=== PATIENT | female | born 1975 | race Caucasian/White ===

== ENCOUNTER → 2020-12-21 12:47 | Outpatient (CLI) | payer BC, SELFPAY ==
[2020-12-21 13:37] LABS: Adenovirus,PCR Not Detected (NotDetected); Bordetella Pertussis Not Detected (NotDetected); Chlamydophila Pneumoniae, PCR Not Detected (NotDetected); Coronavirus 19, PCR Not Detected (NotDetected); Coronavirus 229E Not Detected (NotDetected); Coronavirus NL63 Not Detected (NotDetected); Coronavirus OC43 Not Detected (NotDetected); Coronovirus HKU1,PCR Not Detected (NotDetected); Human Metapneumovirus Not Detected (NotDetected); Influenza A, PCR Not Detected (NotDetected); Influenza AH1, 2009 Not Detected (NotDetected); Influenza AH1, PCR Not Detected (NotDetected); Influenza AH3,PCR Not Detected (NotDetected); Influenza B, PCR Not Detected (NotDetected); Mycoplasma Pneumoniae, PCR Not Detected (NotDetected); Parainfluenza 1, PCR Not Detected (NotDetected); Parainfluenza 2, PCR Not Detected (NotDetected); Parainfluenza 3, PCR Not Detected (NotDetected); Parainfluenza 4, PCR Not Detected (NotDetected); Respiratory Syncytial Virus Not Detected (NotDetected); Rhinovirus/Enterovirus Not Detected (NotDetected)
== END ==
PROVIDERS: PCP Nurse Practitioner; Visit Provider Nurse Practitioner
DX: Z20.822 Contact with and (suspected) exposure to COVID-19 (principal)
CPT/HCPCS: 87486; 87581; 87633; 87798; U0003

== ENCOUNTER → 2022-07-15 23:23 | Outpatient (CLI) | payer BC, SELFPAY ==
[2022-07-15 19:16] LABS: Alanine Aminotransferase 20 U/L (12-78); Albumin Level 4.2 g/dl (3.5-5.0); Albumin/Globulin Ratio 1.6 (1.1-1.8); Alkaline Phosphatase 50 U/L (38-126); Anion Gap 6.1 mEq/L (5-15); Aspartate Amino Transferase 22 U/L (14-36); Bilirubin,Total 0.5 mg/dl (0.2-1.3); Blood Urea Nitrogen 11 mg/dl (7-17); Carbon Dioxide 26 mmol/L (22.0-30.0); Chloride 109 mmol/L (98-107); Chol/HDL Ratio 3.6 (1-3.5); Cholesterol 130 mg/dl (140-200); Estimated Glomerular Filt Rate 106 ml/min (>60); GFR (African American) 129 ML/MIN (>60); Globulin 2.6 g/dL (1.3-3.2); Glucose 95 mg/dl (74-100); HDL Cholesterol 36 mg/dl (40-60); Potassium 4.1 mmoL/L (3.5-5.1); Sodium 137 mmol/L (136-145); Total Protein,Serum 6.8 g/dl (6.3-8.2); Triglycerides 74 mg/dl (30-150); VLDL Cholesterol 15 mg/dL (0-40)
[2022-07-15 19:28] LABS: Creatinine,Urine Random 17 mg/dL (Not Estab.); Microalbumin/Creatinine Ratio 35.8
[2022-07-15 19:29] LABS: Direct LDL Cholesterol 83.47 mg/dL (100-129)
[2022-07-15 19:38] LABS: Basophils # 0.1 K/mm3 (0-0.2); Basophils % 0.9 % (0.1-2.0); Eosinophils # 0.1 K/mm3 (0.0-0.4); Eosinophils % 1.1 % (0.1-12.0); Hematocrit 45.2 % (37.0-47.0); Hemoglobin 15.1 g/dL (12.2-16.2); Lymphocytes # 1.5 K/mm3 (0.7-4.5); Lymphocytes % 23.9 % (10-50); Mean Corpuscular HGB Conc 33.4 g/dL (31.8-35.4); Mean Corpuscular Hemoglobin 32.2 pg (27.0-31.2); Mean Corpuscular Volume 96.5 fl (81-99); Mean Platelet Volume 9.9 fl (7.4-10.4); Monocytes # 0.6 K/mm3 (0.1-1.0); Neutrophils % 65.1 % (37.0-80.0); Platelet Count 281 K/mm3 (142-424); Red Blood Count 4.68 M/mm3 (4.20-5.40); Red Cell Distribution Width 12.9 % (11.5-17.5); White Blood Count 6.2 K/mm3 (4.8-10.8)
[2022-07-15 19:48] LABS: Thyroid Stimulating Hormone 0.55 uIU/mL (0.465-4.68)
[2022-07-15 20:12] LABS: Hemoglobin A1C 5.2 % (4.0-6.0)
[2022-07-17 09:22] LABS: Triiodothyronine (T3) Free 4.1 pg/mL (2.0-4.4)
== END ==
PROVIDERS: PCP Nurse Practitioner; Visit Provider Nurse Practitioner
DX: E05.90 Thyrotoxicosis, unspecified without thyrotoxic crisis or storm (principal); F41.8 Other specified anxiety disorders; I10 Essential (primary) hypertension; J30.9 Allergic rhinitis, unspecified
CPT/HCPCS: 80053; 80061; 82043; 82570; 83036; 84439; 84443; 84481; 85025

== ENCOUNTER → 2022-07-16 23:36 | Outpatient (CLI) | payer BC, SELFPAY | PROVIDERS: PCP Family Medicine; Visit Provider Family Medicine | DX: L72.9 Follicular cyst of the skin and subcutaneous tissue, unspecified (principal); B95.7 Other staphylococcus as the cause of diseases classified elsewhere | CPT/HCPCS: 87070; 87077; 87186; 87205 ==

== ENCOUNTER → 2022-08-08 23:14 | Outpatient (CLI) | payer BC, SELFPAY ==
[2022-08-08 17:57] LABS: Chloride 104 mmol/L (98-107)
[2022-08-08 17:58] LABS: Potassium 4.3 mmoL/L (3.5-5.1); Sodium 138 mmol/L (136-145)
[2022-08-08 18:00] LABS: Alanine Aminotransferase 24 U/L (12-78); Alkaline Phosphatase 49 U/L (38-126); Aspartate Amino Transferase 25 U/L (14-36); Bilirubin,Total 0.5 mg/dl (0.2-1.3); Blood Urea Nitrogen 12 mg/dl (7-17); Estimated Glomerular Filt Rate 89 ml/min (>60); GFR (African American) 108 ML/MIN (>60)
[2022-08-08 18:01] LABS: Albumin Level 4.1 g/dl (3.5-5.0); Albumin/Globulin Ratio 1.7 (1.1-1.8); Anion Gap 10.3 mEq/L (5-15); Calcium 8.9 mg/dl (8.4-10.2); Carbon Dioxide 28 mmol/L (22.0-30.0); Globulin 2.4 g/dL (1.3-3.2); Glucose 92 mg/dl (74-100); Total Protein,Serum 6.5 g/dl (6.3-8.2)
[2022-08-08 18:12] LABS: Basophils # 0.1 K/mm3 (0-0.2); Basophils % 1.4 % (0.1-2.0); Eosinophils # 0.1 K/mm3 (0.0-0.4); Hematocrit 45.3 % (37.0-47.0); Lymphocytes # 1.3 K/mm3 (0.7-4.5); Lymphocytes % 26.4 % (10-50); Mean Corpuscular HGB Conc 33.1 g/dL (31.8-35.4); Mean Corpuscular Hemoglobin 31.8 pg (27.0-31.2); Mean Platelet Volume 9.9 fl (7.4-10.4); Monocytes # 0.5 K/mm3 (0.1-1.0); Monocytes % 10.8 % (1.7-9.3); Neutrophils % 59.4 % (37.0-80.0); Platelet Count 270 K/mm3 (142-424); Red Blood Count 4.71 M/mm3 (4.20-5.40); Red Cell Distribution Width 12.9 % (11.5-17.5)
== END ==
PROVIDERS: PCP Nurse Practitioner; Visit Provider Nurse Practitioner
DX: R10.9 Unspecified abdominal pain (principal)
CPT/HCPCS: 80053; 85025

== ENCOUNTER → 2023-01-10 00:04 | Outpatient (CLI) | payer BC, SELFPAY ==
[2023-01-09 19:11] LABS: Basophils % 0.3 % (0.1-2.0); Eosinophils # 0.1 K/mm3 (0.0-0.4); Eosinophils % 1.5 % (0.1-12.0); Hematocrit 44.3 % (37.0-47.0); Hemoglobin 14.5 g/dL (12.2-16.2); Lymphocytes # 1.7 K/mm3 (0.7-4.5); Mean Corpuscular HGB Conc 32.7 g/dL (31.8-35.4); Mean Corpuscular Hemoglobin 31.2 pg (27.0-31.2); Mean Corpuscular Volume 95.4 fl (81-99); Monocytes # 0.6 K/mm3 (0.1-1.0); Neutrophils % 55.1 % (37.0-80.0); Platelet Count 278 K/mm3 (142-424); Red Blood Count 4.64 M/mm3 (4.20-5.40); Red Cell Distribution Width 12.7 % (11.5-17.5); White Blood Count 5.4 K/mm3 (4.8-10.8)
[2023-01-09 19:36] LABS: Alanine Aminotransferase 36 U/L (12-78); Albumin/Globulin Ratio 1.6 (1.1-1.8); Alkaline Phosphatase 63 U/L (38-126); Anion Gap 15.5 mEq/L (5-15); Aspartate Amino Transferase 28 U/L (14-36); Bilirubin,Total 0.3 mg/dl (0.2-1.3); Blood Urea Nitrogen 13 mg/dl (7-17); Calcium 9.5 mg/dl (8.4-10.2); Carbon Dioxide 25 mmol/L (22.0-30.0); Chloride 103 mmol/L (98-107); Estimated Glomerular Filt Rate 106 ml/min (>60); GFR (African American) 129 ML/MIN (>60); Globulin 2.5 g/dL (1.3-3.2); Glucose 77 mg/dl (74-100); Potassium 4.5 mmoL/L (3.5-5.1); Sodium 139 mmol/L (136-145); Total Protein,Serum 6.5 g/dl (6.3-8.2)
== END ==
PROVIDERS: PCP Nurse Practitioner; Visit Provider Nurse Practitioner
DX: I10 Essential (primary) hypertension (principal); R60.0 Localized edema
CPT/HCPCS: 80053; 85025

== ENCOUNTER → 2023-04-29 07:28 | Outpatient (CLI) | payer BC, SELFPAY ==
[2023-04-29 18:44] LABS: Coronavirus 19, PCR Not Detected (NotDetected); Influenza A, PCR Not Detected (NotDetected); Influenza B, PCR Not Detected (NotDetected)
[2023-04-29 19:26] LABS: Basophils % 0.5 % (0.1-2.0); Eosinophils # 0.1 K/mm3 (0.0-0.4); Hematocrit 44.5 % (37.0-47.0); Hemoglobin 15.4 g/dL (12.2-16.2); Lymphocytes # 1.6 K/mm3 (0.7-4.5); Lymphocytes % 23.8 % (10-50); Mean Corpuscular HGB Conc 34.6 g/dL (31.8-35.4); Mean Corpuscular Hemoglobin 31.7 pg (27.0-31.2); Mean Corpuscular Volume 91.6 fl (81-99); Mean Platelet Volume 10.3 fl (7.4-10.4); Monocytes # 0.5 K/mm3 (0.1-1.0); Monocytes % 7.2 % (1.7-9.3); Neutrophils # 4.5 K/mm3 (1.8-7.8); Neutrophils % 67.4 % (37.0-80.0); Platelet Count 243 K/mm3 (142-424); Red Blood Count 4.85 M/mm3 (4.20-5.40); Red Cell Distribution Width 13.1 % (11.5-17.5); White Blood Count 6.6 K/mm3 (4.8-10.8)
[2023-04-29 20:09] LABS: Alanine Aminotransferase 28 U/L (12-78); Albumin Level 4.3 g/dl (3.5-5.0); Albumin/Globulin Ratio 1.7 (1.1-1.8); Alkaline Phosphatase 63 U/L (38-126); Anion Gap 10.3 mEq/L (5-15); Aspartate Amino Transferase 23 U/L (14-36); Bilirubin,Total 0.4 mg/dl (0.2-1.3); Blood Urea Nitrogen 10 mg/dl (7-17); Calcium 9.1 mg/dl (8.4-10.2); Carbon Dioxide 27 mmol/L (22.0-30.0); Chloride 103 mmol/L (98-107); Estimated Glomerular Filt Rate 106 ml/min (>60); GFR (African American) 128 ML/MIN (>60); Globulin 2.6 g/dL (1.3-3.2); Glucose 95 mg/dl (74-100); Potassium 4.3 mmoL/L (3.5-5.1); Sodium 136 mmol/L (136-145); Total Protein,Serum 6.9 g/dl (6.3-8.2)
== END ==
PROVIDERS: PCP Nurse Practitioner; Visit Provider Nurse Practitioner
DX: R42 Dizziness and giddiness (principal)
CPT/HCPCS: 80053; 85025; 87636

== ENCOUNTER 2023-09-24 10:20 | Outpatient (CLI) | payer BC, SELFPAY ==
[2023-09-24 17:56] LABS: MANUAL DIFFERENTIAL MANUAL DIFFERENTIAL (MANUAL DIFF)
[2023-09-24 18:27] LABS: Basophils # 0.1 K/mm3 (0-0.2); Basophils % 1.3 % (0.1-2.0); Eosinophils # 0.1 K/mm3 (0.0-0.4); Hematocrit 45.6 % (37.0-47.0); Hemoglobin 14.9 g/dL (12.2-16.2); Lymphocytes # 1.7 K/mm3 (0.7-4.5); Lymphocytes % 36.5 % (10-50); Mean Corpuscular HGB Conc 32.7 g/dL (31.8-35.4); Mean Corpuscular Hemoglobin 32.5 pg (27.0-31.2); Mean Corpuscular Volume 99.4 fl (81-99); Mean Platelet Volume 9.8 fl (7.4-10.4); Monocytes # 0.3 K/mm3 (0.1-1.0); Monocytes % 7.4 % (1.7-9.3); Neutrophils # 2.4 K/mm3 (1.8-7.8); Neutrophils % 52.8 % (37.0-80.0); Platelet Count 260 K/mm3 (142-424); Red Blood Count 4.59 M/mm3 (4.20-5.40); Red Cell Distribution Width 13.5 % (11.5-17.5); White Blood Count 4.5 K/mm3 (4.8-10.8)
[2023-09-24 19:30] LABS: Alanine Aminotransferase 23 U/L (12-78); Albumin Level 4.3 g/dl (3.5-5.0); Albumin/Globulin Ratio 1.8 (1.1-1.8); Alkaline Phosphatase 52 U/L (38-126); Anion Gap 10.3 mEq/L (5-15); Aspartate Amino Transferase 26 U/L (14-36); Bilirubin,Total 0.6 mg/dl (0.2-1.3); Blood Urea Nitrogen 15 mg/dl (7-17); Calcium 9.7 mg/dl (8.4-10.2); Carbon Dioxide 29 mmol/L (22.0-30.0); Chloride 104 mmol/L (98-107); Chol/HDL Ratio 3.4 (1-3.5); Cholesterol 148 mg/dl (140-200); Estimated Glomerular Filt Rate 76 ml/min (>60); GFR (African American) 92 ML/MIN (>60); Globulin 2.4 g/dL (1.3-3.2); Glucose 90 mg/dl (74-100); HDL Cholesterol 43 mg/dl (40-60); Potassium 4.3 mmoL/L (3.5-5.1); Sodium 139 mmol/L (136-145); Total Protein,Serum 6.7 g/dl (6.3-8.2); Triglycerides 52 mg/dl (30-150); VLDL Cholesterol 10 mg/dL (0-40)
[2023-09-24 19:35] LABS: Hemoglobin A1C 5.4 % (4.0-6.0)
[2023-09-24 19:41] LABS: Direct LDL Cholesterol 97.56 mg/dL (100-129)
[2023-09-24 20:19] LABS: Vitamin B12 345 pg/mL (239-931)
[2023-09-24 20:32] LABS: Eosinophils % 3 % (0-3); Lymphocytes % 38 % (10-50); Monocytes % 4 % (2-9); Neutrophils % 55 % (42-76); Platelet Estimate Normal; RBC Morphology Normal; Total Cells Counted 100
[2023-09-24 22:18] LABS: Creatinine,Urine Random 36 mg/dL (Not Estab.); Microalbumin < 6.000 mg/L (0-16.7)
== END 2023-09-24 23:59 | disposition home or self-care (01) ==
LOC: LAB.DROPOF 09-26 10:20
PROVIDERS: Nurse Practitioner Family; PCP Nurse Practitioner; Visit Provider Nurse Practitioner
DX: R42 Dizziness and giddiness (principal); I10 Essential (primary) hypertension; E05.00 Thyrotoxicosis with diffuse goiter without thyrotoxic crisis or storm; Z79.899 Other long term (current) drug therapy
CPT/HCPCS: 80053; 80061; 82043; 82306; 82570; 82607; 83036; 84443; 85007; 85014; 85018; 85048; 85049

== ENCOUNTER 2024-05-17 09:18 | Outpatient (CLI) | payer BC, SELFPAY ==
[2024-05-17 18:40] LABS: Basophils # 0.1 K/mm3 (0-0.2); Basophils % 0.6 % (0.1-2.0); Eosinophils # 0.1 K/mm3 (0.0-0.4); Eosinophils % 0.8 % (0.1-12.0); Hematocrit 42.8 % (37.0-47.0); Hemoglobin 14.9 g/dL (12.2-16.2); Lymphocytes # 1.6 K/mm3 (0.7-4.5); Lymphocytes % 19.2 % (10-50); Mean Corpuscular HGB Conc 34.8 g/dL (31.8-35.4); Mean Corpuscular Volume 94.9 fl (81-99); Mean Platelet Volume 11.1 fl (7.4-10.4); Monocytes # 0.8 K/mm3 (0.1-1.0); Monocytes % 9.8 % (1.7-9.3); Neutrophils # 5.8 K/mm3 (1.8-7.8); Neutrophils % 69.4 % (37.0-80.0); Platelet Count 296 K/mm3 (142-424); Red Blood Count 4.51 M/mm3 (4.20-5.40); Red Cell Distribution Width 12.1 % (11.5-17.5); White Blood Count 8.4 K/mm3 (4.8-10.8)
[2024-05-17 19:01] LABS: Alanine Aminotransferase 23 U/L (12-78); Albumin Level 4.1 g/dl (3.5-5.0); Albumin/Globulin Ratio 1.9 (1.1-1.8); Alkaline Phosphatase 45 U/L (38-126); Anion Gap 7.1 mEq/L (5-15); Aspartate Amino Transferase 20 U/L (14-36); Bilirubin,Total 0.5 mg/dl (0.2-1.3); Blood Urea Nitrogen 10 mg/dl (7-17); Calcium 9.3 mg/dl (8.4-10.2); Carbon Dioxide 26 mmol/L (22.0-30.0); Chloride 108 mmol/L (98-107); Estimated Glomerular Filt Rate 88 ml/min (>60); GFR (African American) 107 ML/MIN (>60); Globulin 2.2 g/dL (1.3-3.2); Glucose 84 mg/dl (74-100); Potassium 4.1 mmoL/L (3.5-5.1); Sodium 137 mmol/L (136-145); Total Protein,Serum 6.3 g/dl (6.3-8.2)
[2024-05-17 19:31] LABS: Thyroid Stimulating Hormone 0.28 uIU/mL (0.465-4.68)
[2024-05-17 19:50] LABS: Vitamin B12 311 pg/mL (239-931)
[2024-05-17 21:37] LABS: Free T4 (Free Thyroxine) 2.02 ng/dl (0.78-2.19)
[2024-05-17 22:10] LABS: Hemoglobin A1C 5.1 % (4.0-6.0)
== END 2024-05-17 23:59 | disposition home or self-care (01) ==
LOC: LAB.DROPOF 05-18 09:18
PROVIDERS: PCP Nurse Practitioner; Visit Provider Nurse Practitioner
DX: R53.83 Other fatigue (principal); I10 Essential (primary) hypertension; F41.8 Other specified anxiety disorders; E05.00 Thyrotoxicosis with diffuse goiter without thyrotoxic crisis or storm; Z98.890 Other specified postprocedural states; Z90.89 Acquired absence of other organs; E89.0 Postprocedural hypothyroidism; F17.200 Nicotine dependence, unspecified, uncomplicated
CPT/HCPCS: 80050; 80053; 82306; 82607; 83036; 84439; 84443; 85025

== ENCOUNTER 2024-06-07 14:45 | Outpatient (CLI) | payer BC, SELFPAY ==
[2024-06-07 19:14] LABS: Creatinine,Urine Random 16 mg/dL (Not Estab.)
[2024-06-07 19:15] LABS: Microalbumin < 6.000 mg/L (0-16.7)
[2024-06-09 08:13] LABS: Estradiol 81.2 pg/mL (.); FSH 74.7 mIU/mL (.); LH 59.5 mIU/mL (.)
== END 2024-06-07 23:59 | disposition home or self-care (01) ==
LOC: LAB.DROPOF 06-08 07:59
PROVIDERS: Nurse Practitioner; PCP Family Medicine; Visit Provider Family Medicine
DX: F41.8 Other specified anxiety disorders (principal); I10 Essential (primary) hypertension; E05.00 Thyrotoxicosis with diffuse goiter without thyrotoxic crisis or storm; Z98.890 Other specified postprocedural states; Z90.89 Acquired absence of other organs; E89.0 Postprocedural hypothyroidism; R53.83 Other fatigue; E05.90 Thyrotoxicosis, unspecified without thyrotoxic crisis or storm; Z72.0 Tobacco use
CPT/HCPCS: 82043; 82570; 82670; 83001; 83002

== ENCOUNTER 2024-10-07 09:41 | Outpatient (CLI) | payer BC, SELFPAY ==
[2024-10-07 19:17] LABS: Chol/HDL Ratio 3.1 (1-3.5); Cholesterol 127 mg/dl (140-200); HDL Cholesterol 41 mg/dl (40-60); Triglycerides 68 mg/dl (30-150); VLDL Cholesterol 14 mg/dL (0-40)
[2024-10-07 19:28] LABS: Direct LDL Cholesterol 82.45 mg/dL (100-129)
[2024-10-07 19:34] LABS: T4 (Thyroxine) 12.5 ug/dl (5.53-11.0)
[2024-10-07 19:47] LABS: Thyroid Stimulating Hormone 1.61 uIU/mL (0.465-4.68)
[2024-10-07 19:58] LABS: HIV Combo NEGATIVE (Negative)
[2024-10-07 20:04] LABS: Hepatitis C Ab Qual. W/ RFX NEGATIVE (Negative)
== END 2024-10-07 23:59 | disposition home or self-care (01) ==
LOC: LAB.DROPOF 22:06
PROVIDERS: PCP Family Medicine; Visit Provider Family Medicine
DX: I10 Essential (primary) hypertension (principal); R07.9 Chest pain, unspecified; Z11.59 Encounter for screening for other viral diseases
CPT/HCPCS: 80061; 80074; 84436; 84443; 87389

== ENCOUNTER 2025-03-07 11:41 | Outpatient (CLI) | payer BC, SELFPAY ==
--- OUTSIDE RECORDS SUMMARY | 2023-12-20 05:00 | XMS_ITS ---
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 Never 02/23/2021 - Alcohol Screen Did you have a drink containing alcohol in the past year? Never 02/23/2021 - Household: Social Info Question Answer Notes Household Marital status: Tobacco Use: Social Info Question Answer Notes Tobacco Control (Standard) Tobacco use: Current every day 02/23/2021 - Additional Details Category Social Info Options Details Miscellaneous: Exercise: Heavy Amount of Exercise (4 or more times weekly) Travel outside of the [place]: Travel History: Uses seat belts 02/23/2021 - Encounters Encounter Location Date Provider Diagnosis [facility] [address] [place] [address] [address] [place] [address] 12/20/2023 Provider Migration Plan Of Treatment No Information Progress Notes * Gagan DONNELLY:1975 (49 yo F)Acc No.[id number]:12/20/2023 Patient: Anne-Marie BUTCHER :1975 A ge:48 Y S ex:Female Address:[address] [place] [address], [id number] Subjective: * Chief Complaints: * Medical History: *NO SIGNIFICANT GENETIC HISTORY Trichomonal Vulvovaginitis: 2021 Thickened endometrium 7 [place]: Sexually active - No 7 [place]: Self breast exam- yes 7 [place]: Dairy Product Use - Yes * 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 S exual Activity/Contraception: C ontraception: T ubal Ligation. * OB History: P regnancy History (GPA) T otal Pregnancies 4 , F ull Term 3 , P remature?1, A B. Induced 0 , A B. Spontaneous 0 , E ctopics 0 , M ultiple Births 0 , L iving 4 . G P G ravida: 4 , P umesh: 4 . * Surgical History: Tubal ligation * Family History: F amily History Verified.. *No known family medical history. * Social History: T obacco Use: T obacco Control (Standard) T obacco use: C urrent every day 02/23/2021 -. D rugs/Alcohol: D rugs H ave you used drugs other than those for medical reasons in the past 12 months??Never 02/23/2021 -. A lcohol Screen D id you have a drink containing alcohol in the past year? N ever 02/23/2021 -. M iscellaneous: E xercise: Heavy Amount of Exercise (4 or more times weekly). Travel outside of the [place]: Travel History: Uses seat belts 02/23/2021 -. H ousehold: H ousehold M arital status: . * Allergies: M edications: NO KNOWN DRUG ALLERGIES: Unspecified - AllergyyesAllergies Verified. * * Date:
--- OUTSIDE RECORDS SUMMARY | 2025-01-28 08:45 | XMS_ITS | Encounter Summary ---
Author Organization [facility] Address [address] [place] [id number] Phone Care Team Providers Care Circuit Rider Name Role Phone Cynthia Amado APRN Primary Care Provider [phone] Janny Kaufman MD Unavailable [phone] Reason for Visit * Auth/Cert/Inpt Specialty Diagnoses / Procedures Referred By Saul t Referred To Contact Orth[facility] Surgery Diagnoses Right knee pain, unspecified chronicity Right knee pain, unspecified chronicity [M25.561] Procedures TX ARTHROSCOPY KNEE W/MENISCUS RPR MEDIAL/LATERAL TX ARTHROSCOPY KNEE DIAGNOSTIC W/WO SYNOVIAL BX SPX TX ARTHRS KNE SURG W/MENISCECTOMY MED/LAT W/SHVG RIGHT KNEE DIAGNOSTIC ARTHROSCOPY POSSIBLE MEDIAL MENISCUS ROOT REPAIR, POSSIBLE PARTIAL MEDIAL MENISCECTOMY [facility] [address] [place] [address] Phone: tel: fax: [facility] [address] [place] [address] Phone: tel: fax: Referral ID Status Reason Start Date Expiration Date Visits Re quested Visits Authorized [id number] 1 1 Encounter Details Date Type Department Care Team (Late st Contact Info) Description 01/28/2025 8:45 AM EDT - 01/28/2025 11:59 PM EDT Hospital Encounter [facility] [address] [place], [place] [id number] Bismark Henry MD [address] [place] [address] Discharge Disposition: Home or Self Care Social History Tobacco Use Types Packs/Day Years Used Date Smoking Tobacco: Every Day Cigarettes 1 40.8 Started: 1984 Smokeless Tobacco: Never Comments:3/4 pack of cigaret abigail Alcohol Use Standard Drinks/Week Comments Not Currently 0 (1 standard drink = 0.6 oz pur e alcohol) [facility] Utilities Answer Date Recorded In the past 12 months has th e electric, gas, oil, or water company threatened to shut off services in your home? No 05/10/2024 Overall Financial Resource Strain (CARDIA) Answe r Date Recorded How hard is it for you to pa y for the very basics like food, housing, medical care, and heating? Not hard at all 05/10/2024 PHQ-2 Answer Date Recorded PHQ-2 Total Score 0 05/10/2024 [facility] - Occupational Stress Questionnaire Answer Date Recorded Do you feel stress - tense, restless, nervous, or anxious, or unable to sleep at night because your mind is troubled all the time - these days? Not at all 05/10/2024 Exercise Vital Sign Answer Date Recorde d On average, how many days pe r week do you engage in moderate to strenuous exercise (like a brisk walk)? 0 days 05/10/2024 On average, how many minutes do you engage in exercise at this level? 0 min 05/10/2024 Hunger Vital Sign Answer Date Recorded Within the past 12 months, y ou worried that your food would run out before you got the money to buy more. Never true 05/10/20 24 Within the past 12 months, t he food you bought just didn't last and you didn't have money to get more. Never true 05/10/2024 [facility] HRSN [facility] IP Transportation Answer D ate Recorded In the past 12 months, has l ack of reliable transportation kept you from medical appointments, meetings, work or from getting things needed for daily living? No 05/10/2024 Comments No Sex and Gender Information Value Date Recorded Sex Assigned at Not on file Legal Sex Female 2:40 PM EDT Gender Identity Not on file Sexual Orientation Not on file documented as of this encounter Last Filed Vital Signs Vital Sign Reading Time Taken Comments Blood Pressure 142/80 01/28/2025 10:00 AM EDT Pulse 70 01/28/2025 10:00 AM EDT Temperature 36.7 C (98 F) 01/28/2025 10:00 AM EDT Respiratory Rate 15 01/28/2025 10:00 AM EDT Oxygen Saturation 94% 01/28/2025 10:00 AM EDT Inhaled Oxygen Concentration - - Weight 70.8 kg (156 lb) 01/28/2025 7:27 AM EDT Height 170.2 cm (5' 7 ) 01/28/2025 7:27 AM EDT Body Mass Index 24.43 01/28/2025 7:27 AM EDT documented in this encounter Discharge Instructions * Discharge Instructions* Bismark Henry MD - 01/28/2025 8:04 AM EDT Images from the original note were not included. +++++++++++++++++++++++++++++++++++++++++++++++++++++++++++++++++++ [facility] Discharge Instructions - Following Anesthesia We appreciate the opportunity to care for you today! Here are a few reminders as you head home: A responsible adult, 18 years or older must be in attendance until tomorrow morning. Rest quietly today. May resume usual diet as tolerated or as directed by your surgeon. Do not drive or operate any machinery until tomorrow morning or as instructed. Do not make any legal or important decisions for the next 24 hours. Do not drink alcoholic beverages or take sleeping pills for 24 hours unless otherwise directed. If you received a nerve block for post-operative pain control, protect your blocked arm/leg. It maybe numb. Carefully pad your limb to prevent pressure sores and other injuries. Be careful with applying cold/warm to the blocked limb. Numbness will alter the sensation of the limb and could damage your skin if you cannot correctly feel the temperature. If you have questions or concerns regarding your anesthesia experience, please call our office at . Get Well Soon! [facility] +++++++++++++++++++++++++++++++++++++++++++++++++++++++++++++++++++ Home Care Instructions following Orthopaedic Surgery 1. A responsible adult, 18 years of age or older, must be in attendance for 24 hours following discharge. 2. Rest quietly today. 3. Start with liquids first like 7-up or Gatorade. If no nausea after 1 hour, proceed with a light meal. 4. Do not drive or operate heavy machinery. 5. No alcoholic beverages for 24 hours, or while taking pain medicine. 6. Do not make any legal or important decisions for at least the next 24 hours. 7. Check temperature over the next five days and call if greater than 101.0 F. 8. Notify physician if you have a rash, hives, difficulty breathing, severe nausea and vomiting. 9. Contact your family physician for questions concerning home medications. 10. If pain gets worse, call your physician. 11. If physician is unavailable, go to the Emergency Room. Knee Arthroscopy Discharge Instructions 1. Keep operative knee elevated (above the level of the heart). 2. Apply ice pack/ polar care to your knee. 3. Dressing: Keep your dressing on, clean and dry until removed by physical therapy. 4. Physical therapy: Yes, begin in 2-3 days. 5. Crutches/Walker: Use as needed. Weight bearing as tolerated. 6. Take one regular aspirin a day for 30 days. UNLESS 1) You are allergic 2) You take blood thinners (OK to restart) 3) You take aspirin regularly (OK to restart) 7. Call physician's office for post-op visit in 7-10 days. 8. Physician's phone number: [phone] 9. Resume home medications as prescribed by your other doctors. 10. Phenergan for nausea and Colace for constipation are already escribed and waiting for you at your pharmacy. 11. If you are in pain management, or get pain meds from another doctor, check with that doctor BEFORE filling new pain meds 12. If you received oxycodone or tramadol, take 2 extra-strength Tylenol (500mg tablet) three timesa day for a week, and the pain medicine/narcotic as needed. Check your other medicines for acetaminophen, and keep total daily dosage at 3000mg. documented in this encounter Medications at Time of Discharge ALPRAZolam (XANAX) 0.5 mg Oral Tablet Take 0.5 mg by mouth nightly as needed for Anxiety. 5 atorvastatin (LIPITOR) 20 mg Oral Tablet Take 1 Tablet by mouth nightly. 30 Tablet 6 05/10/2024 3:44 PM EST 4 cetirizine (ZYRTEC) 10 mg Oral Tablet Take 10 mg by mouth daily. dilTIAZem 120 mg Oral Capsule, Sust. Release 24 hr Take 1 Capsule by mouth daily. 30 Capsule 11 5 docusate sodium (COLACE) 100 mg Oral Capsule Take one capsule three times a day while on pain meds 90 Capsule 5 fluticasone propionate (FLONASE) 50 mcg/actuation Nasl [place], SuspensionIndicatio ns:Nasal congestion SPRAY 2 SPRAYS BY NASAL ROUTE DAILY 48 mL 1 4 gabapentin (NEURONTIN) 300 mg Oral Capsule Take 300 mg by mouth 3 times daily. 4 hydrOXYzine (ATARAX) 25 mg Oral Tablet Take 1-2 Tablets by mouth nightly as needed for anxiety/sleep. 60 Tablet 05/10/2024 3:44 PM EST 4 lactobacillus rhamnosus, GG, (CULTURELLE) 10 billion cell Oral Capsule Take 1 Capsule by mouth daily. LEVOthyroxine (SYNTHROID) 150 mcg Oral TabletIndications:P ostsurgical hypothyroidism Take 1 Tablet by mouth daily. 90 Tablet 3 5 meloxicam (MOBIC) 15 mg Oral TabletIndications:P ain in both knees, unspecified chronicity,Patellof emoral arthritis TAKE 1 TABLET BY MOUTH EVERY DAY 30 Tablet 5 nitroGLYCERIN (NITROSTAT) 0.4 mg SL Tablet, Sublingual Dissolve 1 tablet under the tongue at onset of chest pain. For persistent or worsening pain, call 911 and repeat dose every 5 minutes, up to 3 tablets in a 15-minute period. 25 Tablet 05/10/2024 3:44 PM EST 4 oxyCODONE (ROXICODONE) 5 mg Oral Tablet Take 1 Tablet by mouth every 4 hours as needed for Major Surgery/Trauma (G89.18) for up to 28 doses. 28 Tablet 5 promethazine (PHENERGAN) 25 mg Oral Tablet Take 1 Tablet by mouth every 6 hours as needed for Nausea for up to 20 doses. 20 Tablet 5 sertraline (ZOLOFT) 50 mg Oral Tablet Take 50 mg by mouth daily. 4 WEGOVY 1 mg/0.5 mL SubQ Pen InjectorIndications :Obesity (BMI 30-39.9) Subcutaneous (Inject under the skin) 0.5 mL once a week. 2 mL 6 5 documented as of this encounter Ordered Prescriptions Prescription Sig Dispense Quantity Refills Last Filled Start Date End Date docusate sodium (COLACE) 100 mg Oral Capsule Take one capsule three times a day while on pain meds 90 Capsule 01/28/2025 oxyCODONE (ROXICODONE) 5 mg Oral Tablet Take 1 Tablet by mouth every 4 hours as needed for Major Surgery/Traum a (G89.18) for up to 28 doses. 28 Tablet 01/28/2025 promethazine (PHENERGAN) 25 mg Oral Tablet Take 1 Tablet by mouth every 6 hours as needed for Nausea for up to 20 doses. 20 Tablet 01/28/2025 documented in this encounter Discharge Disposition Disposition Code Departure Means Destination Home or Self Care documented in this encounter Procedure Notes * Bismark Henry MD - 01/28/2025 9:42 AM EDT DATE OF SERVICE: 01/28/2025 PREOPERATIVE DIAGNOSES: 1. Right knee pain 2. Right knee medial meniscus tear, but root intact OPERATION PERFORMED: Right knee arthroscopic partial medial meniscectomy. SURGEON: Bismark Henry MD ANESTHESIA: General with block. ESTIMATED BLOOD LOSS: Minimal. TOURNIQUET TIME: None. COMPLICATIONS: None apparent. INDICATIONS FOR PROCEDURE: The patient is a 49-year-old female with increasing pain in her left knee, which has been resistantto conservative treatment. She has both clinical and MRI evidence of meniscal pathology who presents now for surgical intervention. The risks, benefits of surgery as well as alternatives were discussed with her at length prior to the procedure. She understands in general there are no guarantees that surgery would make it better and she could possibly be worse after surgery. Despite the risks involved with surgery and despite the lack of guarantees that she would be made better by surgery, she would still like to proceed. Questions were elicited and answered fully to her satisfaction. Again, no guarantees were expressed or implied. DESCRIPTION OF PROCEDURE: Once informed consent had been obtained and preoperative site marking was performed, the patient was appropriately identified, taken to the operating room and placed supine on the operating table. Perioperative antibiotics were administered. Her right lower extremity was prepped and draped in the usual sterile fashion. A timeout was performed. Standard inferomedial, inferolateral and superolateral portals were established. Examination of the knee revealed multiple small cartilaginous loose bodies in the suprapatellar pouch and medial and lateral gutters. These were removed with a shaver and outflow cannula. The patellofemoral joint had grade III chondral injury. Unstable cartilage around these areas were removed and shaved to stable articular cartilage. ACL and PCL were intact. The lateral compartment was intact. The medial compartment demonstrated diffuse grade III chondral injury on the majority of the medial femoral condyle. Unstable cartilage around these areas were removed and shaved to stable articular cartilage. The root was examined both visually and palpably. The meniscus was firmly attached to the tibia. I was able to grab it and pull and while there was injury in the white-white zone at the root, the root itself remained firmly attached to the tibia, so I left that alone. I did take a straight basket and a shaver to take out the torn part of the meniscus in the white-white zone. I also again cleaned up any delaminated cartilage on the medial femoral condyle. Copious irrigation was then flushed in the knee and debris was removed. Instruments were removed. Wounds were closed with 4-0 Vicryl and Steri-Strips and 30 mL of ropivacaine was injected intraarticularly to help with postoperative pain relief. A sterile dressing is being applied. The patient tolerated the procedure well and will be transferred to the recovery room in stable condition. Postoperatively,the patient is weightbearing as tolerated, get started with physical therapy and follow up in my office in about 1 week for a wound check. Bismark Henry MD [facility] TID: [id number] RECEIPT: [id number] * Bismark Henry MD - 01/28/2025 8:45 AM EDT [id number] * Bismark Henry MD - 01/28/2025 8:45 AM EDT [facility] OPERATIVE/PROCEDURE NOTE Anne-Marie Li January 28, 2025 PRE-OP DIAGNOSIS: Right knee pain, unspecified chronicity [M25.561] POST-OP DIAGNOSIS: Right knee pain, unspecified chronicity [M25.561] PROCEDURE(S): Procedure(s): RIGHT KNEE DIAGNOSTIC ARTHROSCOPY PARTIAL MEDIAL MENISCECTOMY SURGEON(S): Surgeons and Role: * Bismark Henry MD - Primary ANESTHESIA: General w/Block ESTIMATED BLOOD LOSS: approx 5ml or as listed by anesthesia SPECIMEN: * No specimens in log * DISPOSITION/POST PROC COURSE: Stable -> Recovery Room Bismark Henry MD Date: 01/28/2025 documented in this encounter Nursing Notes * Sharri Stewart RN - 01/10/2025 11:32 AM EDT Images from the original note were not included. 01/10/25 PREPARING FOR YOUR SURGERY Date of Surgery: 01/28/25 Time of Surgery: Your surgeon's office will notify you of your scheduled arrival time on 01/27/25. Medications on the Day of Surgery Take the following medications on the morning of surgery: Diltiazem, Levothyroxine, Sertraline. Medications to hold prior to Surgery Hold any anti-inflammatory, aspirin, or supplements / vitamins for 7 days prior to the procedure, unless otherwise informed by your physician. You can take Tylenol. If you are taking blood-thinners, reach out to the prescribing physician for instructions on when to stop this medication prior to your procedure. Hold Dulaglutide (Trulicity), Exenatide ER (Bydureon DCise), Semaglutide (Ozempic, Wegovy), and tirzepatide (Mounjaro or Zepbound) 7 days prior to surgery. Food, Drinks, Tobacco Do not eat or drink anything after midnight. This includes gum, mints, candy, chewing tobacco, and dip. No exceptions or substitutions to these restrictions. Do not smoke, vape, or use any type of tobacco or marijuana products within 24 hours prior to surgery. Smoking will also slow your rate of healing. It is advised that you do not smoke during the healing process. No alcohol 24 hours prior to surgery. Life Science Technical Officer It is important to have a Life Science Technical Officer, someone who is 18 years or older, to accompany you and remain in the facility for the duration of your surgery. This person should be available for the Perioperative Team, which includes your surgeon, to communicate with before, during and after your surgery. Because you are receiving anesthesia, someone is needed to drive you home and remain with you for at least 24 hours after surgery to make sure you are safe during that time We also recommend that no children be present on the day of surgery. If you have a concern, please reach out to our department at [phone]. Hygiene [place] your teeth and gargle the morning of surgery. Shower the morning of surgery or the night before. Do not wear makeup (including eye makeup) lotion, powder, deodorant, perfume, or cologne. Do not shave the operative extremity or near the operative area. Remove nail sammarinese prior to surgery. This includes artificial nails and gel nail sammarinese. Personal Items Wear clean, simple, loose-fitting clothing (no jeans) and sturdy shoes (no flip flops, slides or crocs) to the surgery center. Do not bring unnecessary valuables with you. It is policy that [facility] does not assume responsibility for lost, stolen or broken personal items that are brought in. Exceptions may be considered for items which are considered necessary for your healthcare. These items will be formally documented. Remove all jewelry prior to surgery to prevent injury. We will not tape wedding rings/bands Remove all body piercings prior to arrival. Plastic inserts are acceptable. If you have dentures, they may need to be removed before going into the operating room. We will have a case for them. Glasses and contacts will need to be removed prior to surgery. Please bring a case for them. If you have hearing aids, please wear them to the hospital and bring a case. Bring with You Bring a copy of your Living Will and/or Durable Power of Pin Feather Machine Operator for Healthcare. Bring any medical equipment that your surgeon advises you to use for postoperative care such as braces, slings, boots, crutches, walkers, etc. Notify the Surgeon Notify your surgeon if you develop any illness (fever, cold, cough, sore throat, nausea, vomiting, skin rashes etc.) between now and surgery time Notify your surgeon and Pre-admission testing ([phone]) if you have any changes in your healthconditions or if any new medications are ordered between now and surgery.. Questions or Concerns? If you have any questions or concerns, feel free to call the Pre-Admission testing department at [phone]. We want to make sure you feel safe and have an excellent experience while you are here. Our address is [address] [place] [address] Do not reply to this message through Listen Edition as it may not be answered promptly. documented in this encounter Plan of Treatment Upcoming Encounters Date Type Department Care Team (Late st Contact Info) Description 05/04/2025 4:00 PM EST Office Visit Vicky REDMAN [address] [place] [address] Bismark Henry MD [address] [place] [address] documented as of this encounter Procedures Procedure Name Priority Date/Time Associated Diagnosis Comments TX ARTHROSCOPY KNEE DIAGNOSTIC W/WO SYNOVIAL BX SPX 01/28/2025 8:45 AM EDT Right knee pain, unspecified chronicity Special Needs S&N 49yo bv TX ARTHROSCOPY KNEE W/MENISCUS RPR MEDIAL/LATERAL 01/28/2025 8:45 AM EDT Right knee pain, unspecified chronicity Special Needs S&N 49yo bv documented in this encounter Visit Diagnoses Diagnosis Right knee pain- Primary Pain in joint, lower leg documented in this encounter Admitting Diagnoses Diagnosis Right knee pain Pain in joint, lower leg documented in this encounter Administered Medications Inactive Administered Medications - up to 1 most recent administrations Medication Order MAR Action Action Date Dose Rate Site acetaminophen (TYLENOL) tablet 1,000 mg 1,000 mg, Oral, PREPROCEDURE, 1 dose, Starting on 01/28/25 at 0728, Until 01/28/25 at 0729, Coanalgesic, Do not give if patient received acetaminophen within the last 6 hours Maximum adult dose of acetaminophen is 4000 mg from all sources in 24 hours., Pre-op (Holding/SDS Meds) Given 01/28/2025 7:29 AM EDT 1,000 mg lactated ringers infusion Intravenous, at 50 mL/hr, PREPROCEDURE CONTINUOUS, Starting on Fri01/28/25 at 0728, Until 01/29/25 at 0408, To be given in SDS/Pre-op Holding Area, Pre-op (Holding/SDS Meds) New Bag 01/28/2025 7:33 AM EDT 50 mL/hr oxyCODONE (ROXICODONE) immediate release tablet 5 mg 5 mg, Oral, EVERY 30 MIN PRN, 2 doses, Starting on 01/28/25 at 0947, Until 01/29/25 at 0408, Pain, When tolerating oral intake. Maximum dose not to exceed 10 mg unless otherwise directed by the Anesthesia Coordinator., PACU Given 01/28/2025 9:49 AM EDT 5 mg scopolamine (TRANSDERM-SCOP) 1 mg over 3 days 1 Patch 1 Patch, Transdermal, ONCE PREPROCEDURE, 1 dose, On Fri01/28/25 at 0815, Remove old patch at time of administration. Transderm-Scop patch delivers scopolamine 1 mg per 72 hours, Administer over 24 Hours Patch Applied 01/28/2025 8:15 AM EDT 1 Patch Left Ear documented in this encounter Orders Medications Ordered That Immanuel ht Not Have Been Administered Count Last Ordered Date First Ordered Date bupivacaine (MARCAINE/SENSOR ARASELI) 0.5 % (5 mg/mL) injection 1 01/28/2025 ceFAZolin (ANCEF) 2 g in sod ium chloride IVPB 1 01/28/2025 dimenhyDRINATE (DRAMAMINE) 1 2.5-50 mg in sodium chloride 0.9% injection 1 01/28/2025 droPERidol (INAPSINE) injection 0.625 mg 1 01/28/2025 fentaNYL (SUBLIMAZE) injection 50 mcg 1 04/2025 HYDROmorphone (DILAUDID) injection 0.25 mg 1 01/28/2025 ondansetron (ZOFRAN) injection 4 mg 1 01/28 ondansetron (ZOFRAN-ODT) dis integrating tablet 8 mg 1 01/28/2025 promethazine (PHENERGAN) 12. 5 mg in sodium chloride 0.9% 10 mL injection 1 01/28/2025 promethazine (PHENERGAN) 6.2 5 mg in sodium chloride 0.9% 10 mL injection 1 01/28/2025 sodium chloride 0.9 % irrigation 1 01/29/20 documented in this encounter Care Teams Circuit Rider Relationship Specialty Start Date End Date Cynthia Amado APRN [facility] [address] [place] [address] PCP - General Nurse Practitioner 11/20/18 Janny Kaufman MD [address] [place] [address] Consulting Physician Internal Medicine-Endocrinology, Diabetes & Metabolism 08/24/21 documented as of this encounter
--- OUTSIDE RECORDS SUMMARY | 2025-01-28 08:45 | XMS_ITS | Encounter Summary ---
Author Organization [facility] Address [address] [place] [id number] Phone Care Team Providers Care Frame Nailer Name Role Phone Cynthia Amado APRN Primary Care Provider [phone] Janny Kaufman MD Unavailable [phone] Reason for Visit * Auth/Cert/Inpt Specialty Diagnoses / Procedures Referred By Saul t Referred To Contact Orthopedic Surgery Diagnoses Right knee pain, unspecified chronicity Right knee pain, unspecified chronicity [M25.561] Procedures [place] ARTHROSCOPY KNEE W/MENISCUS RPR MEDIAL/LATERAL [place] ARTHROSCOPY KNEE DIAGNOSTIC W/WO SYNOVIAL BX SPX [place] ARTHRS KNE SURG W/MENISCECTOMY MED/LAT W/SHVG RIGHT KNEE DIAGNOSTIC ARTHROSCOPY POSSIBLE MEDIAL MENISCUS ROOT REPAIR, POSSIBLE PARTIAL MEDIAL MENISCECTOMY [facility] [address] [place] [address] Phone: tel: fax: [facility] [address] [place] [address] Phone: tel: fax: Referral ID Status Reason Start Date Expiration Date Visits Re quested Visits Authorized [id number] 1 1 Encounter Details Date Type Department Care Team (Late st Contact Info) Description 01/28/2025 8:45 AM EDT - 01/28/2025 9:25 AM EDT Surgery [facility] [address] [place] [address] Bismark Henry MD [address] [facility] [address] [place] [address] KNEE ARTHROSCOPY MEDIAL MENISCUS ROOT REPAIR Surgery Details Date/Time Status Location OR Service Patient Class Case Class Case Type Trauma Case? 01/28/2025 8:45 AM Posted [facility] Orthopedics Outpatient Elective Panel 1 Procedure LRB Anes Op Region Wound Class Comments KNEE ARTHROSCOPY MEDIAL MENISCUS ROOT REPAIR Right General w/Block Knee Clean RIGHT KNEE DIAGNOSTIC ARTHROSCOPY PARTIAL MEDIAL MENISCECTOMY Surgeon Surgeon Role Service Panel Bismark Henry MD Primary Orthopedics 1 Special Needs S&N 49yo bv documented in this encounter Social History Tobacco Use Types Packs/Day Years Used Date Smoking Tobacco: Every Day Cigarettes 1 40.8 Started: 1986 Smokeless Tobacco: Never Comments:3/4 pack of cigaret abigail Alcohol Use Standard Drinks/Week Comments Not Currently 0 (1 standard drink = 0.6 oz pur e alcohol) [facility] Utilities Answer Date Recorded In the past 12 months has [employer] electric, gas, oil, or water company threatened to shut off services in your home? No 05/10/2024 Overall Financial Resource Strain (CARDIA) Answe r Date Recorded How hard is it for you to pa y for the very basics like food, housing, medical care, and heating? Not hard at all 05/10/2024 PHQ-2 Answer Date Recorded PHQ-2 Total Score 0 05/10/2024 [facility] of Occupat ional Health - Occupational Stress [...] money to get more. Never true 05/10/2024 [facility] IP Transportation Answer D ate Recorded In [...] Sign Reading Time Taken Comments Blood Pressure 138/83 01/28/2025 8:13 AM EDT Pulse 72 01/28/2025 8:13 AM EDT Temperature 36.7 C (98.1 F) 01/28/2025 7:27 AM EDT Respiratory Rate 17 01/28/2025 8:13 AM EDT Oxygen Saturation 98% 01/28/2025 8:13 AM EDT Inhaled Oxygen Concentration - - Weight 70.8 kg (156 lb) 01/28/2025 7:27 AM EDT Height 170.2 cm (5' 7 ) 01/28/2025 7:27 AM EDT Body Mass Index 24.43 01/28/2025 7:27 AM EDT documented in this encounter Discharge Instructions * Discharge Instructions* Bismark Henry MD - 01/28/2025 8:04 AM EDT Images from the original note were not included. +++++++++++++++++++++++++++++++++++++++++++++++++++++++++++++++++++ [facility] Discharge Instructions - Following Anesthesia We appreciate [...] our office at . Get Well Soon! [facility] +++++++++++++++++++++++++++++++++++++++++++++++++++++++++++++++++++ Home Care Instructions following Orthopaedic [...] in 7-10 days. 8. Physician's phone number: [phone] 9. Resume home medications as prescribed by [...] 5 fluticasone propionate (FLONASE) 50 mcg/actuation Nasl [place], SuspensionIndicatio ns:Nasal congestion SPRAY 2 SPRAYS BY [...] for a wound check. Bismark Henry MD [facility] TID: [id number] RECEIPT: [id number] * Bismark Henry MD - 01/28/2025 8:45 AM EDT [id number] * Bismark Henry MD - 01/28/2025 8:45 AM EDT [facility] OPERATIVE/PROCEDURE NOTE Anne-Marie Li January 28, 2025 [...] in this encounter Nursing Notes * Sharri Stewart, RN - 01/10/2025 11:32 AM EDT Images [...] No alcohol 24 hours prior to surgery. Junior Marketing Associate It is important to have a Junior Marketing Associate, someone who is 18 years or older, [...] please reach out to our department at [phone]. Hygiene [place] your teeth and gargle the morning of surgery. Shower the morning of surgery or the night before. Do not wear makeup (including eye makeup) lotion, powder, deodorant, perfume, or cologne. Do not shave the operative extremity or near the operative area. Remove nail setswana prior to surgery. This includes artificial nails and gel nail setswana. Personal Items Wear clean, simple, loose-fitting clothing [...] your Living Will and/or Durable Power of Power Sewing Machine Operator for Healthcare. Bring any medical equipment that your surgeon advises you to use for postoperative care such as braces, slings, boots, crutches, walkers, etc. Notify the Surgeon Notify your surgeon if you develop any illness (fever, cold, cough, sore throat, nausea, vomiting, skin rashes etc.) between now and surgery time Notify your surgeon and Pre-admission testing ([phone]) if you have any changes in your healthconditions or if any new medications are ordered between now and surgery.. Questions or Concerns? If you have any questions or concerns, feel free to call the Pre-Admission testing department at [phone]. We want to make sure you feel safe and have an excellent experience while you are here. Our address is [address] [place] [id number] Do not reply to this message through [employer] as it may not be answered promptly. documented in this encounter Plan of Treatment Upcoming Encounters Date Type Department Care Team (Late st Contact Info) Description 05/04/2025 4:00 PM EST Office Visit [facility] [address] [place] [id number] Bismark Henry MD [address] [place] [address] documented as of this encounter Procedures Procedure Name Priority Date/Time Associated Diagnosis Comments [place] ARTHROSCOPY KNEE DIAGNOSTIC W/WO SYNOVIAL BX SPX 01/28/2025 8:45 AM EDT Right knee pain, unspecified chronicity Special Needs S&N 49yo bv [place] ARTHROSCOPY KNEE W/MENISCUS RPR MEDIAL/LATERAL 01/28/2025 8:45 AM EDT Right knee pain, unspecified chronicity Special Needs S&N 49yo bv documented in this encounter Visit Diagnoses Diagnosis Right knee pain- Primary Pain in joint, lower leg Right knee pain, unspecified chronicity documented in this encounter Admitting Diagnoses Diagnosis Right knee pain Pain in joint, lower leg documented in this encounter Administered Medications Inactive Administered Medications - up to 1 most recent administrations Medication Order MAR Action Action Date Dose Rate Site acetaminophen (TYLENOL) tablet 1,000 mg 1,000 mg, Oral, PREPROCEDURE, 1 dose, Starting on Fri01/28/25 at 0728, Until Fri01/28/25 at 0729, Coanalgesic, Do not give if patient received acetaminophen within the last 6 hours Maximum adult dose of acetaminophen is 4000 mg from all sources in 24 hours., Pre-op (Holding/SDS Meds) Given 01/28/2025 7:29 AM EDT 1,000 mg bupivacaine (MARCAINE/SENSORCAINE) 0.5 % (5 mg/mL) injection PRN, Starting on Fri01/28/25 at 0927, Until Fri01/28/25 at 1014, Intra-op Given 01/28/2025 9:27 AM EDT 30 mL Right Knee lactated ringers infusion Intravenous, at 50 mL/hr, PREPROCEDURE CONTINUOUS, Starting on Fri01/28/25 at 0728, Until 01/29/25 at 0408, To be given in SDS/Pre-op Holding Area, Pre-op (Holding/SDS Meds) New Bag 01/28/2025 7:33 AM EDT 50 mL/hr oxyCODONE (ROXICODONE) immediate release tablet 5 mg 5 mg, Oral, EVERY 30 MIN PRN, 2 doses, Starting on Fri01/28/25 at 0947, Until 01/29/25 at 0408, Pain, [...] 8:15 AM EDT 1 Patch Left Ear sodium chloride 0.9 % irrigation PRN, Starting on Fri01/28/25 at 0927, Until Fri01/28/25 at 1014, Intra-op Given 01/28/2025 9:27 AM EDT 3,000 mL Right Knee documented in this encounter Orders Medications Ordered That Immanuel ht Not Have Been Administered Count Last Ordered Date First Ordered Date ceFAZolin (ANCEF) 2 g in sod ium [...] chloride 0.9% 10 mL injection 1 01/28/2025 documented in this encounter Care Teams Frame Nailer Relationship Specialty Start Date End Date Cynthia Amado APRN [address] [place] [address] PCP - General Nurse Practitioner 11/20/18 Janny Kaufman MD [address] [place] [address] Consulting Physician Internal Medicine-Endocrinology, Diabetes & Metabolism 08/24/21 documented as of this encounter
--- OUTSIDE RECORDS SUMMARY | 2025-01-28 08:45 | XMS_ITS | Encounter Summary ---
Author Organization [facility] Address [address] [place] [id number] Phone Care Team Providers Care Lime Boiler Name Role Phone Cynthia Amado APRN Primary Care Provider [phone] Janny Kaufman MD Unavailable [phone] Encounter Details Date Type Department Care Team (Late st Contact Info) Description 01/28/2025 8:45 AM EDT Anesthesia Event [facility] [address] [place] [phone] Leo Angelo MD [address] [facility] [address] [place] [address] Emanuel Andres, DO [address] [place] [address] Anesthesia Record Procedure Summary Procedure Name Responsible Anesthesiologist Anesthesia Start Time Anesthesia Stop Time KNEE ARTHROSCOPY MEDIAL MENISCUS ROOT REPAIR (Right: Knee) Leo Angelo MD 01/28/25 0845 01/28/25 0938 Events Date Time Event Comment 01/28/2025 0804 0810 Block/ Injection Placed 0845 AN Equip Check 0845 An Start 0846 An Start Data 0846 Immediate Pre Anesthetic Ass es 0848 An Induction 0851 An LMA 0857 Anesthesia Ready 0907 Time out 0908 Incision 0913 Quick Note LMA with large leak. Exchanged for size 4 LMA and leak resolved 0926 An Emergence 0932 Airway Removed 0934 an stop data 0938 An Stop 09 Handoff I completed my SBAR handoff to the receiving nurse which has included the followin. Identification of the patient, family, or patient surrogate 2. Identification of the responsible practitioner 3. Pertinent medical history 4. Surgical procedure and reason for procedure 5. Intraoperative anesthetic management 6. All current lines, drains and respiratory support. 7. Outstanding follow up orders (X-rays, consults etc) 8. Expectations/Plans for the early post-procedure period 9. Opportunity for questions and acknowledgement of understanding from the receiving PACU/ICU steam finisher Meds Name Total lidocaine injection 1% 50 mg propofol (DIPRIVAN) injection 200 mg fentaNYL 50 MCG/ML INJ 100 mcg ondansetron (ZOFRAN) injection 4 mg /2 m L 4 mg dexamethasone (DECADRON) injection 4 mg/ mL 8 mg dexAMETHasone (DECADRON) injection 4 mg ephedrine injection 10 mg midazolam (VERSED) injection 2 mg bupivacaine (MARCAINE) injection 0.25% ( PF) 20 mL ceFAZolin (ANCEF) 2 g in sodium chloride IVPB 2 g ketorolac (TORADOL) IM/IV injection 30 m g 15 mg lactated ringers infusion 400 mL * Agents Name O2 Et Sevoflurane * Blood No blood administrations on file. Lines, Drains, and Airways Type Details Placement Removal Peripheral IV 01/28/25; 0733; 20; Left; Wrist; Kiera Bey RN; 1; 01/28/25; 1004; Therapy completed; Catheter intact, Dressing applied, No Complications 01/28/25 0733 by Kiera Mccracken RN 01/28/25 1004 by Keena Bucio, WILLIAM Airway Device: LMA; Size: 3 ; Placement Date: 01/28/25; Placement Time: 08 (created via procedure documentation); Removal Date: 01/28/25; Removal Time: 93101/28/25 0851 by Sharifa Vann CRNA 01/28/25 0932 by Sharifa Vann CRNA Incision/Wound 01/28/25; 0908; Open Surgical; Knee; Anterior, Right; 01/29/25; 0403 01/28/25 0908 by Brooke Nelson RN 01/29/25 0403 by Discharge Provider, Automatic documented in this encounter Social History Tobacco Use Types Packs/Day Years Used Date Smoking Tobacco: Every Day Cigarettes 1 40.8 Started: 1984 Smokeless Tobacco: Never Comments:3/4 pack of cigaret abigail Alcohol Use Standard Drinks/Week Comments Not Currently 0 (1 standard drink = 0.6 oz pur e alcohol) [facility] Utilities Answer Date Recorded In the [...] Date Recorded PHQ-2 Total Score 0 05/10/2024 [facility] - [facility] [...] money to get more. Never true [facility]/10[facility]20[facility] IP Transportation Answer D ate Recorded In [...] on file documented as of this encounter Procedure Notes * Sharifa Vann CRNA - 01/28/2025 9:00 AM EDTAssociated Order(s): Airway Intraop Airway Placement: Date/Time: 01/28/2025 8:51 AM Induction type: IV Mask size: Standard adult Pre-Oxygenation: Standard Airway type: LMA Device size: 3 Placement verified: End tidal CO2 and Symmetric chest wall motion Condition: Atraumatic and Unchanged Insertion attempts: 1 Title: MEETING FACILITATOR * Leo Angelo MD - 01/28/2025 8:14 AM EDTAssociated Order(s): Peripheral Block by Anesthesia Peripheral Block by Anesthesia Procedure Date/Time: 01/28/2025 8:10 AM Patient location during procedure: pre-op Reason for block: at surgeon's request and post-op pain management Staff and Pre-procedure checks Anesthesiologist: Leo Angelo MD Performed: anesthesiologist Preanesthetic Checklist: Allergies confirmed, Block plan confirmed, Necessary block equipment present, Supplemental O2 applied, if needed, Anticoagulant confirmed, Block site marked, Patient identified- 2 criteria, Surgical procedure consent verified, Aseptic technique used, Drug/solution labeled, BOBBY recommended monitors applied, IV access functioning, Sedation given, if needed and Resuscitation equipment available Immediate perianesthetic assessment completed: Yes Patient position: Supine Prep: Patient Draped and Chloraprep Monitoring: BP, EKG, O2 Sat and Mental status assessed Position: Peripheral Block Block type: Adductor Canal Block Laterality: Right Injection technique: single-shot Pain pump: no pain pump placed Medication(s) Administered: midazolam (VERSED) injection - Intravenous 2 mg - 01/28/2025 8:10:00 AM dexAMETHasone (DECADRON) injection - Infiltration 4 mg - 01/28/2025 8:10:00 AM bupivacaine (MARCAINE) injection 0.25% (PF) - Infiltration 20 mL - 01/28/2025 8:10:00 AM Needle Needle type: Marie Needle size: 21Gx4 Nerve localization: ultrasound guidance (Adductor Canal block- Sartorius and Vastus Medialis muscle, Femoral artery and Saphenous nerve are identified; the tip of the needle and spread of the local anesthetic around the Saphenous nerve are visualized. Ultrasound image documentation is attached/scanned in epic chart. No anatomical pathology noted during block placement.) Adductor Canal block- Sartorius and Vastus Medialis muscle, Femoral artery and Saphenous nerve are identified; the tip of the needle and spread of the local anesthetic around the Saphenous nerve are visualized. Ultrasound image documentation is attached/scanned in epic chart. No anatomical pathology noted during block placement. Ultrasound probe: linear Ultrasound needle approach: in-plane Assessment Block success: complete Events: Uneventful Heart rate change: no Blood aspirated: no Paresthesia pain: absent Resistance on injection: normal Intermittent incremental injection LA at 5ml Ultrasound Image of the block is attached/scanned to the epic chart. documented in this encounter OR Notes * Anesthesia Postprocedure Evaluation - Leo Angelo MD - 01/28/2025 12:38 PM EDT Post-Anesthesia Evaluation Note Patient Name: Anne-Marie Li Patient Date: January 28, 2025 Post-Anesthesia Evaluation Patient Location: PACU Post op vitals: stable Difficult airway: no Nausea controlled: yes Level of consciousness: awake and alert Post anesthesia pain: adequate analgesia Long acting local anesthetic: single shot Airway patency: patent Respiratory status: nasal canula and spontaneous ventilation Cardiovascular status: stable Hydration status: euvolemic Temperature: Normothermia Perioperative complications: NONE Vitals Value Taken Time BP 142/80 01/28/25 10:00 Resp 15 01/28/25 10:00 SpO2 94 % 01/28/25 10:00 Temp 36.7 ??C (98 ??F) 01/28/25 10:00 Pulse 70 01/28/25 10:00 * Anesthesia Preprocedure Evaluation - Leo Angelo MD - 01/10/2025 2:50 PM EDT Pre-Anesthesia Evaluation Note Patient Name: Anne-Marie Li Sex: female Patient : 1975 Age: 49 y.o. Patient Date: January 10, 2025 Procedure(s): KNEE ARTHROSCOPY MEDIAL MENISCUS ROOT REPAIR (Right: Knee) KNEE ARTHROSCOPY MENISCECTOMY/REPAIR (ALSO COVERS ARTHROSCOPIC INCISION AND DRAINAGE/DEBRIDEMENT) (Right: Knee) Anesthesia Evaluation Previous anesthesia. History of anesthetic complications (Difficulty waking up, becomes combative when waking up): Delayed emergence Airway Mallampati: II TM distance: >3 FB Neck ROM: full No increased risk of difficult airway Dental Dental exam findings: implants Pulmonary (+) History of tobacco use (40.7 pk-yrs): current Physical exam: Comments: Clear to auscultation (-) no asthma, no sleep apnea Cardiovascular Comments: ECHO 04/2024 Conclusions * Left ventricular chamber dimension is normal. * Left ventricular function is normal with an estimated ejection fraction of 55-60%. * Left ventricular segmental wall motion is normal. * The left ventricular diastolic function is normal. * Right ventricular systolic function is normal. * Unable to estimate pulmonary arterial systolic pressure due to lack of tricuspid regurgitation jet. * Dilated inferior vena cava measuring 2.39 cm with <50% collapse upon inspiration consistent with significantly elevated right atrial pressure, 15 mmHg. * No significant valve disease. 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 Anesthesia Plan ASA 3 Last solid intake: The patient has not eaten within the last 8 hours. Last clear liquid intake: The patient has not had clear liquids within the last 2 hours. Anesthesia Plan: general and regional Induction: intravenous Monitors: STD PONV Risk Score: 2. Score of 2 is Moderate Risk for PONV, at least one antiemetic indicated for prophylaxis. Informed consent Anesthetic plan and risks discussed with: patient and family. Chart Reviewed and patient examined documented in this encounter Plan of Treatment Upcoming Encounters Date Type Department Care Team (Late st Contact Info) Description 05/04/2025 4:00 PM EST Office Visit [facility] [address] [place] [id number] Bismark Henry MD [address] [place] [phone] documented as of this encounter Procedures Procedure Name Priority Date/Time Associated Diagnosis Comments INTRAOP AIRWAY PLACEMENT Routine 01/28/2025 8:51 AM EDT PERIPHERAL BLOCK Routine 01/28/2025 8:10 AM EDT documented in this encounter Results * INTRAOP AIRWAY PLACEMENT (01/28/2025 8:51 AM EDT) Narrative [facility] - 01/28/2025 8:51 AM EDT Sharifa Vann CRNA 01/28/2025 9:00 AM Intraop Airway Placement: Date/Time: 01/28/2025 8:51 AM Induction type: IV Mask size: Standard adult Pre-Oxygenation: Standard Airway type: LMA Device size: 3 Placement verified: End tidal CO2 and Symmetric chest wall motion Condition: Atraumatic and Unchanged Insertion attempts: 1 Title: MEETING FACILITATOR us Leo Angelo MD [place] ANESTHESIA Final Res ult [facility] [address] [place] [address] * Peripheral Block by Anesthesia (01/28/2025 8:10 AM EDT) Narrative [facility] - 01/28/2025 8:10 AM EDT Leo Angelo MD 01/28/2025 8:15 AM Peripheral Block by Anesthesia Procedure Date/Time: 01/28/2025 8:10 AM Patient location during procedure: pre-op Reason for block: at surgeon's request and post-op pain management Staff and Pre-procedure checks Anesthesiologist: Leo Angelo MD Performed: anesthesiologist Preanesthetic Checklist: Allergies confirmed, Block plan confirmed, Necessary block equipment present, Supplemental O2 applied, if needed, Anticoagulant confirmed, Block site marked, Patient identified- 2 criteria, Surgical procedure consent verified, Aseptic technique used, Drug/solution labeled, BOBBY recommended monitors applied, IV access functioning, Sedation given, if needed and Resuscitation equipment available Immediate perianesthetic assessment completed: Yes Patient position: Supine Prep: Patient Draped and Chloraprep Monitoring: BP, EKG, O2 Sat and Mental status assessed Position: Peripheral Block Block type: Adductor Canal Block Laterality: Right Injection technique: single-shot Pain pump: no pain pump placed Medication(s) Administered: midazolam (VERSED) injection - Intravenous 2 mg - 01/28/2025 8:10:00 AM dexAMETHasone (DECADRON) injection - Infiltration 4 mg - 01/28/2025 8:10:00 AM bupivacaine (MARCAINE) injection 0.25% (PF) - Infiltration 20 mL - 01/28/2025 8:10:00 AM Needle Needle type: Pajunk Needle size: 21Gx4 Nerve localization: ultrasound guidance (Adductor Canal block- Sartorius and Vastus Medialis muscle, Femoral artery and Saphenous nerve are identified; the tip of the needle and spread of the local anesthetic around the Saphenous nerve are visualized. Ultrasound image documentation is attached/scanned in [facility] chart. No anatomical pathology noted during block placement.) Adductor Canal block- Sartorius and Vastus Medialis muscle, Femoral artery and Saphenous nerve are identified; the tip of the needle and spread of the local anesthetic around the Saphenous nerve are visualized. Ultrasound image documentation is attached/scanned in [facility] chart. No anatomical pathology noted during block placement. Ultrasound probe: linear Ultrasound needle approach: in-plane Assessment Block success: complete Events: Uneventful Heart rate change: no Blood aspirated: no Paresthesia pain: absent Resistance on injection: normal Intermittent incremental injection LA at 5ml Ultrasound Image of the block is attached/scanned to the [facility] chart. us Leo Angelo MD ANESTHESIA ORDERABLES Roel mena Result [facility] [address] [place] [address] documented in this encounter Visit Diagnoses Not on filedocumented in this encounter Administered Medications Inactive Administered Medications - up to 1 most recent administrations Medication Order MAR Action Action Date Dose Rate Site BUPivacaine (PF) (MARCAINE/SENSORCAINE) 0.25 % (2.5 mg/mL) injection Infiltration, ONCE PRN, Starting on Fri01/28/25 at 0810, Until Fri01/28/25 at 0810, Anesthesia Intra-op Given 01/28/2025 8:10 AM EDT 20 mL ceFAZolin (ANCEF) 2 g in sodium chloride IVPB 2 g, Intravenous, ONCE PREPROCEDURE, 1 dose, On Fri01/28/25 at 0730, Administer over 30 Minutes, Administer 30 minutes prior to surgery for patient body weight less than (<) 120 kg, Reason for Therapy: Surgical Prophylaxis, Pre-op (Antibiotic) New Bag 01/28/2025 8:55 AM EDT 2 g dexAMETHasone (DECADRON) injection Infiltration, ONCE PRN, Starting on Fri01/28/25 at 0810, Until Fri01/28/25 at 0810, Anesthesia Intra-op Given 01/28/2025 8:10 AM EDT 4 mg dexAMETHasone (DECADRON) injection Intravenous, PRN (Anesthesia), Starting on Fri01/28/25 at 0856, Until Fri01/28/25 at 0938, Anesthesia Intra-op Given 01/28/2025 8:56 AM EDT 8 mg ePHEDrine injection Intravenous, PRN (Anesthesia), Starting on Fri01/28/25 at 0918, Until Fri01/28/25 at 0938, Anesthesia Intra-op Given 01/28/2025 9:18 AM EDT 10 mg fentaNYL (SUBLIMAZE) injection Intravenous, PRN (Anesthesia), Starting on Fri01/28/25 at 0904, Until Fri01/28/25 at 0938, Anesthesia Intra-op Given 01/28/2025 9:20 AM EDT 50 mcg ketorolac (TORADOL) injection Intravenous, PRN (Anesthesia), Starting on Fri01/28/25 at 0921, Until Fri01/28/25 at 0938, Anesthesia Intra-op Given 01/28/2025 9:21 AM EDT 15 mg lidocaine 1% 10 mg/mL (1 %) injection Intravenous, PRN (Anesthesia), Starting on Fri01/28/25 at 0848, Until Fri01/28/25 at 0938, Anesthesia Intra-op Given 01/28/2025 8:48 AM EDT 50 mg midazolam (VERSED) injection Intravenous, ONCE PRN, Starting on Fri01/28/25 at 0810, Until Fri01/28/25 at 0810, Anesthesia Intra-op Given 01/28/2025 8:10 AM EDT 2 mg ondansetron (ZOFRAN) injection Intravenous, PRN (Anesthesia), Starting on Fri01/28/25 at 0856, Until Fri01/28/25 at 0938, Anesthesia Intra-op Given 01/28/2025 8:56 AM EDT 4 mg propofoL (DIPRIVAN) injection Intravenous, PRN (Anesthesia), Starting on Fri01/28/25 at 0848, Until Fri01/28/25 at 09, Anesthesia Intra-op Given 01/28/2025 8:48 AM EDT 200 mg documented in this encounter Care Teams Lime Boiler Relationship Specialty Start Date End Date Cynthia Amado APRN [address] [place] [address] [address] [place] [address] PCP - General Nurse Practitioner 11/20/18 Janny Kaufman MD [address] [place] [address] Consulting Physician Internal Medicine-Endocrinology, Diabetes & Metabolism 08/24/21 documented as of this encounter
--- OUTSIDE RECORDS SUMMARY | 2025-01-31 11:30 | XMS_ITS | Encounter Summary ---
Author Organization [facility] Address [address] [place] [address] Care Team Providers Care Environmental Services Technician Name Role Phone Cynthia Amado APRN Primary Care Provider [phone] Janny Kaufman MD Unavailable Reason for Visit * Physical Therapy (Routine) - Authorization Not Needed Specialty Diagnoses / Procedures Referred By Saul membreno Referred To Contact Physical Therapy Diagnoses Right knee pain, unspecified chronicity Bismark Henry MD [address] [place] [address] Phone: tel: fax: [facility] [address] [place] [address] Phone: tel: fax: Referral ID Status Reason Start Date Expiration Date Visits Requested Visits Authorized [id number] Authorization Not Needed 01/05/2025 05/18/2025 1 100 Encounter Details Date Type Department Care Team (Late st Contact Info) Description 01/31/2025 11:30 AM EDT Office Visit [facility] [address] [place] [address] Daily Boyce, PT [address] [place] [address] Acute medial meniscus tear, right, subsequent encounter (Primary Dx) Social History Tobacco Use Types Packs/Day Years Used Date Smoking Tobacco: Every Day Cigarettes 1 40.8 Started: 1984 Smokeless Tobacco: Never Comments:3/4 pack of cigaret abigail Alcohol Use Standard Drinks/Week Comments Not Currently 0 (1 standard drink = 0.6 oz pur e alcohol) [facility] Utilities Answer Date Recorded In the [...] Date Recorded PHQ-2 Total Score 0 05/10/2024 [facility] - Occupational [...] money to get more. Never true 05/10/2024 [facility] IP Transportation Answer D ate Recorded In [...] on file documented as of this encounter Progress Notes * Daily Boyce, PT - 01/31/2025 11:30 AM EDT Images from the original note were not included. Physical Therapy Evaluation 01/31/2025 Anne-Marie Li : 1975 Referring Provider: Bismark Henry MD Next MD visit: 02/04/25 Encounter Diagnosis Name Primary? Acute medial meniscus tear, right, subsequent encounter Yes Surgery Date: 01/28/25 Onset date: 11/17/24 Contraindications/Precautions: WBAT; universal Visit: Time In: 11:27 am Time Out: 12:15 pm Subjective: Anne-Marie Li is a 49 y.o. female referred by Bismark Henry MD to outpatient PhysicalTherapy with a primary diagnosis of: Encounter Diagnosis Name Primary? Acute medial meniscus tear, right, subsequent encounter Yes History of Injury/Mechanism of Inury: Pt notes that she has experienced pain in her right knee for several months. She notes that the pain was present with all activity and was limiting her ability to walk for prolonged periods of time and work in her yard. She notes it felt like there was fluid leaking down the inside of my leg. Pt was evaluated by Dr Henry and xrays indicated mild OA. She received a steroid injection which provided no relief of symptom. An MRI was therefore performed and this indicated a tear of the meniscus and tricompartmental OA. Pt therefore underwent surgery on January 28. Pt was discharged to home with the support of family. She notes that she has not been ableto put weight through her foot due to pain in the knee. She is using a walker for all WB activity. She notes that she is using Tylenol and pain medication to address her symptoms. She denies use of ice to date due to the thickness of her postop dressing. Pt presents to PT today for postop PT evaluat ion and initiation of treatment. Functional Deficits Since Injury: ADL, IADL, household chore, outdoor work, sleep Diagnostic Tests: MRI 1. Tricompartmental cartilage degeneration, more prominent on the patellar surface with reactive subchondral marrow edema at the median ridge. 2. Mild degeneration/fraying of the medial meniscal posterior root. No well- defined or displaced medial meniscal tear. Intact lateral meniscus. 3. Intact cruciate/collateral ligaments and extensor mechanism. 4. Small effusion and dissecting/leaking Paredes's cyst. Relevant Past Medical/Surgical History: see pt chart Current medications and allergies were reviewed with the patient. Occupation: NA Work Requirements: Work Status: NA Recreational Activities: yard work, riding bicycles Fall Risk: The patient is not currently a fall risk. Patient stated goals: Eliminate pain in the right knee. Pain at highest: 5/10 Pain at lowest: 3/10 Location: general R knee region Description: Pain is described as dull, sharp, aching, burning, and throbbing. What Increases Pain?: putting foot flat on floor, walking, transferring to/from car, bed mobility, ascending.descending stairs What Decreases Pain?: change of activity/position, medication Objective Posture : Joint Mobility: R patellar mobility limited by guarding and tightness in all plnes Palpation: TTP noted R knee medial joint line, lateral joint line, distal HS Gait: Pt presents with a standard walker. She demo decreased heel strike and flexed knee pattern onthe R. Sensation: Intact bilat LE Flexibility: Functional Mobility Screening: Other: Knee Date: 01/31/25 Date: 01/31/25 Date: Date: Girth Measurements Left Right Left Right 10 cm above joint line Joint line 39.5 cm 39.8 cm 10 cm below joint line 35.5 cm 37.3 cm Date: Date: 01/31/25 Date: Date: Knee PROM Left Right Left Right Flexion 74 Extension Date: 01/31/25 Date: 01/31/25 Date: Date: Knee AROM Left Right Left Right Flexion 135 70 Extension 0 lacking 3 Date: 01/31/25 Date: 01/31/25 Date: Date: Strength Left Right Left Right Knee extension 4/5 3+/5 Knee flexion 5/5 4-/5 DF 5/5 4+/5 PF Hip Flexion 5/5 4/5 Hip adduction Hip abduction Special Tests None Functional Assessment: 01/31/2025 11:00 AM Rehab Outcomes LEFS Total 20 LEFS Max Function 25 % Treatment s/p RIGHT PMME 01/28/25 Treatment Date 01/31/25 Date Date Date Stepper >>> rope gastroc str 30 x 3 seated HS str 30 x 3 QS 10 x 10 SAQ pillow 2x10 heel slide 10 x 10 HR 2x10 wt shift lateral x 20 GAIT heel to toe pattern with emphasis on knee ROM using standard walker Modalities VASO x 10' to reduce edema and pain Measurements heel slide 74 Charges 48' 1 E, 1 TE, 1 V HEP ID: [id number] Treatment today included: Timed Units: Therapeutic exercise: 18 minutes Total Time for Timed Treatments: 18 minutes Untimed Units: Vaso and PT Eval Low Patient's Tolerance of Evaluation and/or Treatment: Good Response to HEP instruction/patient education: The patient verbalized understanding and demonstrated independence with home exercise program. Impression: Patient presents with signs and symptoms consistent with Encounter Diagnosis Name Primary? Acute medial meniscus tear, right, subsequent encounter Yes . Impairments (physical, cognitive and/or psychosocial): decreased mobility, edema/swelling, impairedbody mechanics, loss of balance, weakness, and pain/tenderness Performance Deficits: functional mobility, driving, household tasks, work/education, sleeping/rest,and recreational activities Based on the functional impairments as stated and activity limitations above, Anne-Marie presents as a good candidate for skilled intervention by a licensed therapist. Prognosis for Anne-Marie based on the above objective findings is good . Goals Short-Term Goals set for 3 weeks. Pt demo increased R knee ROM 0-130 to promote improved gait mechanics, sit to stand mechanics and IADL performance. Pt to report decreased pain </= 2-3/10 with activity to allow progression of strength training program. Pt able to ambulate community distances using least restrictive assistive device demonstrating normalized gait mechanics to promote improved function in the home and community. Pt independent initial HEP to promote improved ROM, strength and function. Long-Term Goals set for 6 weeks. Pt demo increased strength R LE 5/5 grossly to promote ability to perform household chore and yard work without limitation. Pt able to ascend/descend a standard step/curb with normalized mechanics to promote independence inthe home and community. Pt to report decreased pain </= 0-1/10 with activity to promote return to previous level of activity. Pt to report LEFS >/= 70/80 to demo improved overall function. Pt independent finalized HEP to reduce risk of reinjury and maintain current strength gains. Plan Patient will be seen 2 times per week for 6-8 weeks. Treatment to include therapeutic exercise, neuromuscular reeducation, manual therapy, therapeutic activity, gait training, vasopneumatic pump, electrical stimulation, blood flow restriction, and dry needling. Signature: Daily Boyce, PT Date: 01/[address] [place] [address] License: [id number] documented in this encounter Plan of Treatment Upcoming Encounters Date Type Department Care Team (Late st Contact Info) Description 05/04/2025 4:00 PM EST Office Visit [facility] [address] [facility] [address] [place] [address] Bismark Henry MD [address] [place] [address] Scheduled Referrals Name Type Priority Associated Diagnoses Orde r Schedule AMB REFERRAL TO PHYSICAL THERAPY Outpatient Referral Routine Right knee pain, unspecified chronicity Ordered: 01/05/2025 documented as of this encounter Visit Diagnoses Diagnosis Acute medial meniscus tear, right, subsequent encounter- Primary documented in this encounter Care Teams Environmental Services Technician Relationship Specialty Start Date End Date Cynthia Amado APRN [address] [facility] [address] [place] [address] PCP - General Nurse Practitioner 11/20/18 Janny Kaufman MD [address] [place] [address] Consulting Physician Internal Medicine-Endocrinology, Diabetes & Metabolism 08/24/21 documented as of this encounter
--- OUTSIDE RECORDS SUMMARY | 2025-02-04 16:00 | XMS_ITS | Encounter Summary ---
Author Organization [facility] Address [address] [place] [address] Care Team Providers Care Airbrush Artist Technical Name Role Phone Cynthia Amado APRN Primary Care Provider [phone] Janny Kaufman MD Unavailable [phone] Reason for Visit * Physical Therapy (Routine) - Authorization Not Needed Specialty Diagnoses / Procedures Referred By Saul membreno Referred To Contact Physical Therapy Diagnoses Right knee pain, unspecified chronicity Bismark Henry MD [address] [place] [address] Phone: tel: fax: [facility] [address] [place] [address] Phone: tel: fax: Referral ID Status Reason Start Date Expiration Date Visits Requested Visits Authorized [id number] Authorization Not Needed 01/05/2025 05/18/2025 1 100 Encounter Details Date Type Department Care Team (Late st Contact Info) Description 02/04/2025 4:00 PM EDT Office Visit [facility] [address] [place] [address] Daily Boyce, PT [address] [place] [address] Acute medial meniscus tear, right, subsequent encounter (Primary Dx) Social History Tobacco Use Types Packs/Day Years Used Date Smoking Tobacco: Every Day Cigarettes 1 40.8 Started: 1984 Smokeless Tobacco: Never Comments:3/4 pack of cigaret abigail Alcohol Use Standard Drinks/Week Comments Not Currently 0 (1 standard drink = 0.6 oz pur e alcohol) [facility] Utilities Answer Date Recorded In the [...] Date Recorded PHQ-2 Total Score 0 05/10/2024 [facility] - Occupational Stress [...] money to get more. Never true 05/10/2024 [facility] IP Transportation Answer D ate Recorded [...] as of this encounter Progress Notes * Phoebe Aldrich, PT - 02/04/2025 4:00 PM EDT Images from the original note were not included. Physical Therapy Daily Progress Note 02/04/2025 Anne-Marie Li : 1975 Referring Provider: Bismark Henry MD Next MD visit: 02/04/25 Encounter Diagnosis Name Primary? Acute medial meniscus tear, right, subsequent encounter Yes Surgery Date: 01/28/25 Onset date: 11/17/24 Contraindications/Precautions: WBAT; universal Visit: Time In: 3:46pm Time Out: 4:27pm Subjective: Her knee is still sore, but she has gotten rid of the walker. The knee is most sore posterolaterally now. see treatment grid below Treatment s/p RIGHT PMME 01/28/25 Treatment Date 01/31/25 Date 02/04/2025 Date Date Stepper >>> L1 x5' UE/LE rope gastroc str 30 x 3 SB 30 x3 seated HS str 30 x 3 30 x3 QS 10 x 10 10 x10 SAQ pillow 2x10 foam roller 2x10 heel slide 10 x 10 10 x10 HR 2x10 2x10 wt shift lateral x 20 lateral x20 standing hip abd x20 B GAIT heel to toe pattern with emphasis on knee ROM using standard walker Modalities VASO x 10' to reduce edema and pain ice to go Measurements heel slide 74 arom 113 after manual Charges 48' 1 E, 1 TE, 1 V 41' 2te man HEP ID: [id number] Treatment today included: Timed Units: Therapeutic exercise: 33 minutes Manual therapy: 8 minutes Total Time for Timed Treatments: 41 minutes Untimed Units: None Patient's Tolerance of Evaluation and/or Treatment: Good Response to HEP instruction/patient education: The patient verbalized understanding and demonstrated independence with home exercise program. Assessment: Pt's R knee ROM improved to 113 after manual therapy today. Gait pattern is improving without AD though she continues to demo decreased mesfin and decreased stride length with decreased stance time on RLE. Plan: Continue current plan of care. Signature: Phoebe Aldrich PT Date: 02/04/2025 [place] License: [id number] documented in this encounter Plan of Treatment Upcoming Encounters Date Type Department Care Team (Late st Contact Info) Description 05/04/2025 4:00 PM EST Office Visit [facility] [address] [place] [address] Bismark Henry MD [address] [place] [address] documented as of this encounter Visit Diagnoses Diagnosis Acute medial meniscus tear, right, subsequent encounter- Primary documented in this encounter Care Teams Airbrush Artist Technical Relationship Specialty Start Date End Date Cynthia Amado APRN [address] [facility] [address] [place] [address] PCP - General Nurse Practitioner 11/20/18 Janny Kaufman MD [address] [place] [address] Consulting Physician Internal Medicine-Endocrinology, Diabetes & Metabolism 08/24/21 documented as of this encounter
--- OUTSIDE RECORDS SUMMARY | 2025-02-04 16:30 | XMS_ITS | Encounter Summary ---
Author Organization [facility] Address [address] [id number] Care Team Providers Care Sustainability Director Name Role Phone Cynthia Amado APRN Primary Care Provider [phone] Janny Kaufman MD Unavailable [phone] Reason for Visit * Reason Comments Post-Operative Exam Encounter Details Date Type Department Care Team (Late st Contact Info) Description 02/04/2025 4:30 PM EDT Office Visit [facility] [address] [address] Bismark Henry MD [address] [place] [address] S/P arthroscopy (Primary Dx) Social History Tobacco Use Types Packs/Day Years Used Date Smoking Tobacco: Every Day Cigarettes 1 40.8 Started: 1984 Smokeless Tobacco: Never Comments:3/4 pack of cigaret abigail Alcohol Use Standard Drinks/Week Comments Not Currently 0 (1 standard drink = 0.6 oz pur e alcohol) [facility] Utilities Answer Date Recorded In the [...] Date Recorded PHQ-2 Total Score 0 05/10/2024 [facility] Occupat [facility] Health - Occupational Stress [...] money to get more. Never true 05/10/2024 [facility] IP Transportation Answer D ate Recorded In [...] as of this encounter Progress Notes * Bismark Henry MD - 02/04/2025 4:30 PM EDT Images from the original note were not included. Anne-Marie Li 02/04/2025 [id number] HISTORY: Anne-Marie Li returns today for reevaluation of her Right Knee after Knee Arthroscopy Medial Meniscus Root Repair - Right on 01/28/2025. She is doing well. She notes a little bit of pain still, but overall is much better. PHYSICAL EXAMINATION: On examination, wounds look good. No erythema, warmth or sign of infection. Her calf is soft. IMPRESSION: Doing well. Plan: I will have her continue her activities as tolerated and increase them as tolerated. I will plan to see her back in 3 months or if she has any problems. I went over with her the arthroscopic images. She likes the plan. Bismark Henry MD documented in this encounter Plan of Treatment Upcoming Encounters Date Type Department Care Team (Late st Contact Info) Description 05/04/2025 4:00 PM EST Office Visit [facility] [address] [place] [address] Bismark Henry MD [address] [place] [address] documented as of this encounter Visit Diagnoses Diagnosis S/P arthroscopy- Primary Other postprocedural status documented in this encounter Care Teams Sustainability Director Relationship Specialty Start Date End Date Cynthia Amado APRN [facility] [address] [place] [address] PCP - General Nurse Practitioner 11/20/18 Janny Kaufman MD [address] [place] [address] Consulting Physician Internal Medicine-Endocrinology, Diabetes & Metabolism 08/24/21 documented as of this encounter
--- OUTSIDE RECORDS SUMMARY | 2025-02-11 16:00 | XMS_ITS | Encounter Summary ---
Author Organization [facility] Address [address] [place] [address] Care Team Providers Care Wood Flour Miller Name Role Phone Cynthia Amado APRN Primary Care Provider [phone] Janny Kaufman MD Unavailable [phone] Reason for Visit * Physical Therapy (Routine) - Authorization Not Needed Specialty Diagnoses / Procedures Referred By Saul membreno Referred To Contact Physical Therapy Diagnoses Right knee pain, unspecified chronicity Bismark Henry MD [address] [place] [address] Phone: tel: fax: [facility] [address] [place] [address] Phone: tel: fax: Referral ID Status Reason Start Date Expiration Date Visits Requested Visits Authorized [id number] Authorization Not Needed 01/05/2025 05/18/2025 1 100 Encounter Details Date Type Department Care Team (Late st Contact Info) Description 02/11/2025 4:00 PM EDT Office Visit [facility] [address] [place] [address] Daily Boyce, PT [address] [facility] [place] [address] Acute medial meniscus tear, right, subsequent encounter (Primary Dx) Social History Tobacco Use Types Packs/Day Years Used Date Smoking Tobacco: Every Day Cigarettes 1 40.8 Started: 1984 Smokeless Tobacco: Never Comments:3/4 pack of cigaret abigail Alcohol Use Standard Drinks/Week Comments Not Currently 0 (1 standard drink = 0.6 oz pur e alcohol) [facility] Utilities Answer Date Recorded In the past [...] Date Recorded PHQ-2 Total Score 0 05/10/2024 [facility] Occupat ional Health - Occupational [...] money to get more. Never true 05/10/2024 [facility] IP Transportation Answer D ate Recorded [...] Progress Notes * Phoebe Aldrich, PT - 02/11/2025 4:00 PM EDT Images from the original note were not included. Physical Therapy Daily Progress Note 02/11/2025 Anne-Marie Li : 1975 Referring Provider: Bismark Henry MD Next MD visit: 02/04/25 Encounter Diagnosis Name Primary? Acute medial meniscus tear, right, subsequent encounter Yes Surgery Date: 01/28/25 Onset date: 11/17/24 Contraindications/Precautions: WBAT; universal Visit: Time In: 4:06pm Time Out: 4:50pm Subjective: Her knee has popped 3x since her last session but felt good. She is feeling the feelingof fluid rushing down her leg intermittently still. She saw MD who told her that she had a meniscusrepair but she does not have restrictions. see treatment grid below Treatment s/p RIGHT PMME 01/28/25 (per op report though pt notes and MD f/u note shows meniscal root repair asof 02/04/2025 f/u appt, with instructions to increase activity as tolerated) Treatment Date 01/31/25 Date 02/04/2025 Date 02/11/2025 Date Stepper >>> L1 x5' UE/LE L1 x6' UE/LE rope gastroc str 30 x 3 SB 30 x3 SB 30 x3 seated HS str 30 x 3 30 x3 30 x3 QS 10 x 10 10 x10 SAQ LAQ pillow 2x10 foam roller 2x10 3 x20 3 x20 heel slide 10 x 10 10 x10 10 x10 HR 2x10 2x10 3x10 wt shift lateral x 20 lateral x20 DC standing hip abd x20 B tandem stance 30 x4 GAIT heel to toe pattern with emphasis on knee ROM using standard walker TKE Blk 3 x20 Modalities VASO x 10' to reduce edema and pain ice to go vaso x10' medium comp to decrease pain and inflam Measurements heel slide 74 arom 113 after manual 125 heel slides Charges 48' 1 E, 1 TE, 1 V 41' 2te man HEP ID: [id number] Treatment today included: Timed Units: Therapeutic exercise: 28 minutes Neuromuscular Re-education: 8 minutes Total Time for Timed Treatments: 36 minutes Untimed Units: Vaso Patient's Tolerance of Evaluation and/or Treatment: Good Response to HEP instruction/patient education: The patient verbalized understanding and demonstrated independence with home exercise program. Assessment: Pt's gait pattern has improved and is nearly normalized. Her R knee flex ROM has improved as well though weakness in the quad persists. Plan: Continue current plan of care. Signature: Phoebe Aldrich PT Date: 02/11/2025 [place] License: [id number] documented in this encounter Plan of Treatment Upcoming Encounters Date Type Department Care Team (Late st Contact Info) Description 05/04/2025 4:00 PM EST Office Visit [facility] [address] [address] Bismark Henry MD [address] [place] [address] documented as of this encounter Visit Diagnoses Diagnosis Acute medial meniscus tear, right, subsequent encounter- Primary documented in this encounter Care Teams Wood Flour Miller Relationship Specialty Start Date End Date Cynthia Amado APRN [address] [facility] [address] [place] [address] PCP - General Nurse Practitioner 11/20/18 Janny Kaufman MD [address] [place] [address] Consulting Physician Internal Medicine-Endocrinology, Diabetes & Metabolism 08/24/21 documented as of this encounter
[2025-03-07 21:26] LABS: Alanine Aminotransferase 23 U/L (12-78); Albumin Level 4.1 g/dl (3.5-5.0); Albumin/Globulin Ratio 1.9 (1.1-1.8); Alkaline Phosphatase 63 U/L (38-126); Anion Gap 12.2 mEq/L (5-15); Aspartate Amino Transferase 23 U/L (14-36); Bilirubin,Total 0.6 mg/dl (0.2-1.3); Blood Urea Nitrogen 9 mg/dl (7-17); Calcium 9.5 mg/dl (8.4-10.2); Carbon Dioxide 29 mmol/L (22.0-30.0); Chloride 102 mmol/L (98-107); Creatinine,Serum 0.80 mg/dl (0.52-1.04); Estimated Glomerular Filt Rate 76 ml/min (>60); GFR (African American) 92 ML/MIN (>60); Globulin 2.2 g/dL (1.3-3.2); Glucose 89 mg/dl (74-100); Potassium 4.2 mmoL/L (3.5-5.1); Sodium 139 mmol/L (136-145); Total Protein,Serum 6.3 g/dl (6.3-8.2)
[2025-03-07 21:41] LABS: Free T4 (Free Thyroxine) 1.67 ng/dl (0.78-2.19)
[2025-03-07 21:55] LABS: Thyroid Stimulating Hormone 0.12 uIU/mL (0.465-4.68)
[2025-03-09 05:13] LABS: Hepatitis B Surface Antigen Negative (Negative)
--- OUTSIDE RECORDS SUMMARY | 2025-03-09 12:22 | XMS_ITS | Encounter Summary ---
Author Organization [facility] Address [address] [place] [address] Care Team Providers Care Marine Steam [employer] Name Role Phone Cynthia Amado APRN Primary Care Provider [phone] Janny Kaufman MD Unavailable [phone] Encounter Details Date Type Department Care Team (Late st Contact Info) Description 02/16/2025 Orders Only [facility] [address] [facility] [address] [place], [place] [id number] Angélica Freeburn, MA Social History Tobacco Use Types Packs/Day Years Used Date Smoking Tobacco: Every Day Cigarettes 1 40.8 Started: 1984 Smokeless Tobacco: Never Comments:3/4 pack of cigaret abigail Alcohol Use Standard Drinks/Week Comments Not Currently 0 (1 standard drink = 0.6 oz pur e alcohol) [facility] Utilities Answer Date Recorded In the past 12 months has [employer] electric, gas, oil, or water company threatened to shut off services in your home? No 05/10/2024 Overall Financial Resource Strain (CARDIA) Answe r Date Recorded How hard is it for you to pa y for the very basics like food, housing, medical care, and heating? Not hard at all 05/10/2024 PHQ-2 Answer Date Recorded PHQ-2 Total Score 0 05/10/2024 [facility] Occupat ional [facility] - Occupational Stress [...] get more. Never true 05/10/2024 [facility] IP Transportation Answer D ate Recorded In [...] on file documented as of this encounter Plan of Treatment Upcoming Encounters Date Type Department Care Team (Late st Contact Info) Description 05/04/2025 4:00 PM EST Office Visit [facility] [address] [address] Bismark Henry MD [address] [address] documented as of this encounter Visit Diagnoses Not on filedocumented in this encounter Care Teams Marine Steam [employer] Relationship Specialty Start Date End Date Cynthia Amado APRN [address] [facility] [address] [place] [address] PCP - General Nurse Practitioner 11/20/18 Janny Kaufman MD [address] [place] [address] Consulting Physician Internal Medicine-Endocrinology, Diabetes & Metabolism 08/24/21 documented as of this encounter
--- OUTSIDE RECORDS SUMMARY | 2025-03-09 12:22 | XMS_ITS | Clinical Summary ---
Author Organization [facility] Address [address] [place] [address] Phone Care Team Providers Care Director Of Security Name Role Phone Cynthia Amado APRN Primary Care Provider Janny Kaufman MD Unavailable [phone] Allergies Active Allergy Reactions Criticality Noted Date Comments Dye Hives Medium 03/03/2019 Contrast dye Medications cetirizine (ZYRTEC) 10 mg Oral Tablet Take 10 mg by mouth daily. Active lactobacillus rhamnosus, GG, (CULTURELLE) 10 billion cell Oral Capsule Take 1 Capsule by mouth daily. Active fluticasone propionate (FLONASE) 50 mcg/actuation Nasl [place], SuspensionIndicati ons:Nasal congestion SPRAY 2 SPRAYS BY NASAL ROUTE DAILY 48 mL 1 01/12/20 24 Active atorvastatin (LIPITOR) 20 mg Oral Tablet Take 1 Tablet by mouth nightly. 30 Tablet 6 4 3:44 PM EST 05/10/20 24 Active hydrOXYzine (ATARAX) 25 mg Oral Tablet Take 1-2 Tablets by mouth nightly as needed for anxiety/sleep. 60 Tablet 4 3:44 PM EST 05/10/20 24 Active Additional Information Patient not taking.Reason: Therapy Completed, Reported on 01/10/2025 nitroGLYCERIN (NITROSTAT) 0.4 mg SL Tablet, Sublingual Dissolve 1 tablet under the tongue at onset of chest pain. For persistent or worsening pain, call 911 and repeat dose every 5 minutes, up to 3 tablets in a 15-minute period. 25 Tablet 4 3:44 PM EST 05/10/20 24 Active Additional Information Patient not taking.Reason: Therapy Completed, Reported on 01/28/2025 ALPRAZolam (XANAX) 0.5 mg Oral Tablet Take 0.5 mg by mouth nightly as needed for Anxiety. 05/21/19 25 Active gabapentin (NEURONTIN) 300 mg Oral Capsule Take 300 mg by mouth 3 times daily. 04/06/20 24 Active sertraline (ZOLOFT) 50 mg Oral Tablet Take 50 mg by mouth daily. 05/17/20 24 Active LEVOthyroxine (SYNTHROID) 150 mcg Oral TabletIndications: Postsurgical hypothyroidism Take 1 Tablet by mouth daily. 90 Tablet 3 05/28/19 25 Active WEGOVY 1 mg/0.5 mL SubQ Pen InjectorIndication s:Obesity (BMI 30-39.9) Subcutaneous (Inject under the skin) 0.5 mL once a week. 2 mL 6 05/28/19 25 Active dilTIAZem 120 mg Oral Capsule, Sust. Release 24 hr Take 1 Capsule by mouth daily. 30 Capsule 11 05/31/19 25 Active meloxicam (MOBIC) 15 mg Oral TabletIndications: Pain in both knees, unspecified chronicity,Patello femoral arthritis TAKE 1 TABLET BY MOUTH EVERY DAY 30 Tablet 01/13/20 25 Active promethazine (PHENERGAN) 25 mg Oral Tablet Take 1 Tablet by mouth every 6 hours as needed for Nausea for up to 20 doses. 20 Tablet 01/29/20 25 Active oxyCODONE (ROXICODONE) 5 mg Oral Tablet Take 1 Tablet by mouth every 4 hours as needed for Major Surgery/Trauma (G89.18) for up to 28 doses. 28 Tablet 01/29/20 25 Active docusate sodium (COLACE) 100 mg Oral Capsule Take one capsule three times a day while on pain meds 90 Capsule 01/29/20 25 Active Active Problems Patient Care Coordination No te Formatting of this note migh t be different from the original. Miles RODRIGUEZAS Controlled report completed 09/02/2023 Informed consent signed 09/02/2023 Reference #[id number] [facility] - Byron Jackson MD Interventional Pain Protocol: Miles report completed (EVERY 3 MONTHS) ( 02/10/24 ) Pharmacy: [facility] [place] [phone] [address] [phone] [[id number]] Problem Noted Date Diagnosed Date Acute medial meniscus tear, right, subsequent en counter 01/28/2025 Right knee pain 01/05/2025 Hypokalemia 05/28/2024 Assessment & Plan (05/28/2024 1:48 PM EST): Will reassess. Most likely due to hyperventilation Chest pain, unspecified type 05/09/2024 Abnormal weight gain 11/25/2023 Assessment & Plan (11/25/2023 2:09 PM EDT): The patient is concerned with weight gain. She would like to try weight loss medication. She would be a good candidate for GLP-1 RA trial if covered. In the meantime she is to keep a detailed food diary and bring it at the time of follow-up visit. Essential hypertension 11/25/2023 Obesity (BMI 30-39.9) 11/25/2023 Assessment & Plan (05/28/2024 1:49 PM EST): The patient has lost 10% of the total body weight. She is to continue present Wegovy regimen without dose titration at this time to make sure that she has balanced and adequate caloric intake. We discussed different caloric options and caloric goals Assessment & Plan (11/25/2023 2:10 PM EDT): The importance of increased physical activity and balanced caloric intake to facilitate weight loss was emphasized to the patient. The patient was provided with dietary instructions. The patient was advised to continue aerobic exercise program consisting of either 150minutes/week of moderate physical activity or 75 minutes/week of moderate to vigorous physical activity. The patient is to keep a detailed food diary and bring to the time of follow-up visit. Postsurgical hypothyroidism 11/24/2023 Overview (11/25/2023): TOTAL THYROIDECTOMY 10/09 Assessment & Plan (05/28/2024 1:48 PM EST): The patient is euthyroid clinically and biochemically. The patient is to continue present thyroxine regimen. We will monitor thyroid function closely Assessment & Plan (11/25/2023 2:09 PM EDT): The patient is euthyroid clinically and biochemically. The patient is to continue present thyroxine regimen. We will monitor thyroid function closely. TSH in 2 months Esophageal dysphagia 09/02/2023 Vertebrogenic low back pain 06/30/2023 Chronic right-sided low back pain with bilateral sciatica 02/17/2023 Resolved Problems Problem Noted Date Diagnosed Date Resolved Date Goiter, 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2024 Assessment & Plan (08/25/2023 8:59 PM EDT): The patient is euthyroid clinically. She is to decrease methimazole and metoprolol. Will reassess thyroid function test in 4 to 5 weeks. Assessment & Plan (05/26/2023 2:07 PM EST): The nature of her condition as well as the results of workup were reviewed with the patient in detail. Hyperthyroid symptoms have subsided. Will obtain the thyroid function test today and adjust the dose of methimazole if needed. Hyperthyroidism 02/28/2023 05/28/2024 Assessment & Plan (03/03/2023 10:32 AM EDT): The patient has developed symptomatic hyperthyroxinemia 3-4 weeks ago. The nature of her condition as well as the results of work-up were reviewed with the patient. She is to have a thyroid scan and uptake done to distinguish between toxic diffuse goiter and painless subacute thyroiditis. In the meantime she is to start metoprolol She is to avoid excessive physical activity and maintain adequate fluid and caloric intake Goiter, nodular 08/24/2021 05/28/2024 Assessment & Plan (08/25/2023 8:59 PM EDT): Physical exam reveals interval increase in size of bilobar nodule goiter. The patient has developed local discomfort. We discussed different treatment options such as radioactive iodine and total thyroidectomy. I do not feel that radioactive iodine is the best option for her in light of history of bilateral thyroid nodule with left hypoechoic solid nodule. I feel that the patient would benefit from total thyroidectomy as a definitive treatment. She is to see ENT physician to discuss the options Assessment & Plan (05/26/2023 2:06 PM EST): Physical exam reveals no palpable thyroid nodules. Will repeat thyroid ultrasound in 03/11 to assure that anatomical stability Assessment & Plan (03/03/2023 10:32 AM EDT): Thyroid ultrasound revealed stable appearance of small thyroid nodules. Continue to monitor for now Assessment & Plan (03/01/2022 10:06 AM EDT): Physical exam reveals no palpable thyroid nodules. The patient is to have a thyroid ultrasound done in a year to assure the anatomical stability. Assessment & Plan (08/24/2021 10:07 AM EDT): Thyroid ultrasound revealed heterogeneous appearance of the thyroid gland commonly seen in autoimmune thyroid disease. There was a small right spongiform nodule. Thyroid ultrasound results were reviewed with the patient We will repeat thyroid ultrasound in 12 months. No additional intervention is needed right now. Chronic autoimmune thyroiditis 08/22/2021 05/26/2023 Assessment & Plan (03/01/2022 10:06 AM EDT): The patient is euthyroid clinically. We will obtain thyroid function test to support the clinical impression. Assessment & Plan (08/24/2021 10:06 AM EDT): The patient was found to have elevated antithyroid antibodies including TPO and TSH receptor antibodies. Physical exam reveals small diffuse goiter. The nature of her condition as well as the results of work-up were discussed with the patient at length. We reviewed symptoms of hyperthyroidism in detail. The patient is euthyroid clinically and biochemically at this point. No intervention is needed. We will monitor thyroid function closely and decide on the need for additional intervention. The patient is at risk for developing abnormal thyroid function in the future. Encounters Date Type Department Care Team Description 03/04/2025 Telephone [facility] [address] [place], [place] [id number] Bismark Henry MD Patient Question 02/16/2025 [facility] [address] [place] [address] [place], [place] 02/11/2025 4:00 PM EDT Office Visit [facility] [address] [place] [address] Daily Boyce, PT Acute medial meniscus tear, right, subsequent encounter (Primary Dx) 02/04/2025 4:30 PM EDT Office Visit [facility] [address] [address] Bismark Henry MD S/P arthroscopy (Primary Dx) 02/04/2025 4:00 PM EDT Office Visit [facility] [address] [place] [address] Daily Boyce, PT Acute medial meniscus tear, right, subsequent encounter (Primary Dx) 01/31/2025 11:30 AM EDT Office Visit [facility] [address] [place] [address] Daily Boyce, PT Acute medial meniscus tear, right, subsequent encounter (Primary Dx) 01/31/2025 Plan of Care Documentation [facility] [address] [address] 01/28/2025 8:45 AM EDT - 01/28/2025 9:25 AM EDT Surgery [facility] [address] [place] [address] Bismark Henry MD KNEE ARTHROSCOPY MEDIAL MENISCUS ROOT REPAIR 01/28/2025 8:45 AM EDT Anesthesia Event [facility] [address] [place] [address] Leo Angelo MD Barnett, Bradley J, DO 01/28/2025 8:45 AM EDT - 01/28/2025 11:59 PM EDT Hospital Encounter [facility] [address] [place] [address] Bismark Henry MD Discharge Disposition: Home or Self Care 01/27/2025 Telephone [facility] [address] [place] [address] Bismark Henry MD Surgery 01/12/[address] [facility] [address] [place] [address] Bismark Henry MD Orders 01/12/2025 Refill [facility] [address] [place] [address] Frances Judd APRN Medication Refill 01/10/2025 Travel 01/05/2025 2:30 PM EDT Office Visit [facility] [address] [address] Bismark Henry MD Right knee pain, unspecified chronicity (Primary Dx) 12/29/2024 3:00 PM EDT Ancillary Procedure [facility] [address] [address] Patellofemoral arthritis 12/27/2024 Refill [facility] [address] [address] Janny Kaufman MD Medication Refill 12/15/2024 3:00 PM EDT Office Visit [facility] [address] [place] [address] Bismark Henry MD Patellofemoral arthritis (Primary Dx) 12/15/2024 Refill [facility] [address] [place] [address] Frances Judd APRN Medication Refill 12/13/[address] [place] [phone] Latasha Colon, KIERAN Other (Returning Patient) from Last 3 Months Immunizations Immunization Administration Dates Next Due Tdap 01/17/2023 Surgical History Surgery Date Site/Laterality Comments BREAST BIOPSY 01/04/2021 Left TUBAL LIGATION IR 2 LEVEL BILATERAL MEDIAL BRANCH BLOCK LUM SAC 03/12/2023 IR 2 LEVEL BILATERAL MEDIAL BRANCH BLOCK LUM SAC 03/12/2023 Emanuel Jackson MD [facility] IR 2 LEVEL BILATERAL MEDIAL BRANCH BLOCK LUM SAC 04/02/2023 IR 2 LEVEL BILATERAL MEDIAL BRANCH BLOCK LUM SAC 04/02/2023 Emanuel Jackson MD [facility] COLONOSCOPY BACK SURGERY 08/22/2023 ablation on back THYROIDECTOMY 09/25/2023 Neck/Bilateral Total thyroidectomy; Surgeon: Kevin Dc MD; Location: ED MAIN OR; Service: ENT DENTAL SURGERY CARDIAC CATHETERIZATION 06/19/2024 - 07/16/2024 KNEE ARTHROSCOPY 01/28/2025 Knee/Right RIGHT KNEE DIAGNOSTIC ARTHROSCOPY PARTIAL MEDIAL MENISCECTOMY; Surgeon: Bismark Henry MD; Location: [facility]; Service: Orthopedics Medical History Medical History Date Comments Complication of anesthesia Diffi culty waking up, becomes combative when waking up Hypertension Thyroid disease Graves disease Iodine-deficiency related goiter 2023 Esophageal dysphagia 2023 Goiter, nodular 08/24/2021 Hyperthyroidism 02/28/2023 Goiter, 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 Anxiety disorder Panic attacks Family History Medical History Relation Name Comments Diabetes Father High Blood Pressure Father High Cholesterol Father Heart Failure Mother High Blood Pressure Mother Kidney Disease Mother Kidney Failure Mother Colon Cancer Sister Anesth Problems Neg Hx Relation Name Status Comments Father Mother Sister Social History Tobacco Use Types Packs/Day Years Used Date Smoking Tobacco: Every Day Cigarettes 1 40.8 Started: 1984 Smokeless Tobacco: Never Comments:3/4 pack of cigaret abigail Alcohol Use Standard Drinks/Week Comments Not Currently 0 (1 standard drink = 0.6 oz pur e alcohol) [facility] Utilities Answer Date Recorded In the past 12 months has e electric, gas, oil, or water company threatened to shut off services in your home? No 05/10/2024 Overall Financial Resource Strain (CARDIA) Answe r Date Recorded How hard is it for you to pa y for the very basics like food, housing, medical care, and heating? Not hard at all 05/10/2024 PHQ-2 Answer Date Recorded PHQ-2 Total Score 0 05/10/2024 [facility] [...] money to get more. Never true 05/10/2024 [facility] IP Transportation Answer D ate Recorded In [...] on file Sexual Orientation Not on file Last Filed Vital Signs Vital Sign Reading [...] Mass Index 24.43 01/28/2025 7:27 AM EDT Plan of Treatment Upcoming Encounters Date Type Department Care Team (Late Contact Info) Description 05/04/2025 4:00 PM EST Office Visit [facility] [address] [place] [address] Bismark Henry MD [address] [place] [address] Health Maintenance Due Date Last Done Comments Annual Wellness Exam 1976 Hepatitis B Vaccine (1 of 3 - 19+ 3-dose series) 1992 Pneumococcal Vaccine 50+ (1 of 2 - PCV) 1992 HPV/Pap Cotest 2003 Cologuard 2018 FIT 2018 Sigmoidoscopy 2018 Virtual Colonography 2018 Cervical Cancer Screening 02/24/2024 Pap Smear 02/24/2024 02/23/2021 COVID-19 Vaccine ( season) 2025 08/22/2020, 07/27/2020 Influenza Vaccine (#1) 2025 4, 01/04/2023, 04/23/2022, Additional history exists Breast Cancer Screening 06/02/2025 06/02/19 24, 03/01/2022, 03/01/2022, Additional history exists Low Dose Lung Cancer Screening 07/15/2025 07/15/2024 Colon Cancer Screening 12/01/2031 Colonoscopy 12/01/2031 11/30/2021, 08/15/2021 DTaP/TDaP/Td (2 - Td or Tdap) 01/17/2033 01/17/2023 Zoster Completed 12/25/2023, 10/23/2023 Meningococcal B Vaccine Aged Out No l onger eligible based on patient's age to complete this topic Medical Devices Implanted Type Area Substation Operator Apprentice Device Identifier Shelf Expiration Date Model / Serial / Lot Dental Implants Procedures Procedure Name Priority Date/Time Associated Diagnosis Comments INTRAOP AIRWAY PLACEMENT Routine 01/28/2025 8:51 AM EDT LA ARTHROSCOPY KNEE DIAGNOSTIC W/WO SYNOVIAL BX SPX 01/28/2025 8:45 AM EDT Right knee pain, unspecified chronicity Special Needs S&N 49yo bv LA ARTHROSCOPY KNEE W/MENISCUS RPR MEDIAL/LATERAL 01/28/2025 8:45 AM EDT Right knee pain, unspecified chronicity Special Needs S&N 49yo bv PERIPHERAL BLOCK Routine 01/28/2025 8:10 AM EDT MRI KNEE RIGHT WO CONTRAST Routine 12/29/2024 3:12 PM EDT Patellofemoral arthritis CT ANGIOGRAM CHEST ABDOMEN PELVIS W CONTRAST STAT 07/15/2024 7:32 PM EST MM MAMMO DIGITAL BROWN SCREEN BILAT Routine 06/02/2023 3:15 PM EST Encounter for screening mammogram for malignant neoplasm of breast [facility] COLONOSCOPY Routine 11/30/2021 8:00 AM EDT Screening for colon cancer Gastroesophageal reflux disease, unspecified whether esophagitis present Polyp of colon, unspecified part of colon, unspecified type from Last 3 Months or Most Recently Relevant to Health Maintenance Results * INTRAOP AIRWAY PLACEMENT (01/28/2025 8:51 AM EDT) Narrative [facility] - 01/28/2025 8:51 AM EDT Sharifa Vann CRNA 01/28/2025 9:00 AM Intraop Airway Placement: Date/Time: 01/28/2025 8:51 AM Induction type: IV Mask size: Standard adult Pre-Oxygenation: Standard Airway type: LMA Device size: 3 Placement verified: End tidal CO2 and Symmetric chest wall motion Condition: Atraumatic and Unchanged Insertion attempts: 1 Title: MACHINE WOOD SANDER us Leo Angelo MD LA ANESTHESIA Final Res ult [facility] [address] [place] [address] * Peripheral Block by Anesthesia (01/28/2025 8:10 AM EDT) Narrative [facility] - 01/28/2025 8:10 AM EDT Leo [...] visualized. Ultrasound image documentation is attached/scanned in [employer] chart. No anatomical pathology noted during block [...] block is attached/scanned to the epic chart. Leo Angelo MD ANESTHESIA ORDERABLES Fin al Result Performing Organization Address City/[facility]/ZIP Co de Phone Number [facility] [address] [place] [id number] * MRI KNEE RIGHT WO CONTRAST (12/29/2024 3:12 PM EDT) Narrative [facility] - 12/29/2024 3:12 PM EDT Please see the scanned MRI report associated with this order on the Imaging tab of the patient's chart. Bismark ALVARADO MRI ORDERABLES Final Result Performing Organization Address [facility] Co de Phone Number [facility] * CT ANGIOGRAM CHEST ABDOMEN PELVIS W CONTRAST (07/15/2024 7:32 PM EST) Anatomical Region Laterality Modality Abdomen, Pelvis, Chest Computed Tomography 07/15/2024 7:32 PM EST Impressions 07/15/2024 7:59 PM EST 1. No acute abnormality including aortic dissection. 2. 5 mm right apical pulmonary nodule. No follow-up needed if patient is low-risk. Non-contrast chest CT can be considered in 12 months if patient is high-risk (Per Fleischner Society guidelines). - Narrative 07/15/2024 7:[address] ANGIOGRAM CHEST ABDOMEN PELVIS W CONTRAST 07/15/2024 7:32 PM CLINICAL HISTORY: -Chest Pain -atypical chest pain. COMPARISON: None. PROCEDURE COMMENTS: Multidetector CT angiography of the region of interest. Isovue 370 IV contrast given as recorded in EPIC. Multiplanar reconstructions generated and reviewed, including 3D MIPS. Dose 1 : CT DLP Total : 739.28 mGycm DLP Spiral Max : 581.13 mGycm Maximum CTDI Vol : 8.37 mGy FINDINGS: Chest CT: Precontrast chest CT has no intramural hematoma along the thoracic aorta. Postcontrast CTA demonstrates normal thoracic aortic caliber without dissection. The main pulmonary arteries are patent. Normal heart size. No coronary arterial calcifications or pericardial effusion. Calcified mediastinal and hilar nodes. 5 mm right posterior apical subpleural pulmonary nodule without definite calcification. Mild biapical scarring. Otherwise clear lungs. No pleural effusion or pneumothorax. Normal chest wall. Grossly intact rib cage. Abdomen and pelvis CT: Normal abdominal aortic caliber without dissection. Mild scattered aortoiliac atherosclerotic calcifications. Patent visceral branches of the abdominal aorta. Grossly unremarkable liver, spleen, gallbladder, pancreas, adrenals, and kidneys. The visualized bowel within normal limits. No free fluid or pneumoperitoneum or adenopathy. The visualized bones are grossly intact. Procedure Note Blayne Chowdhury MD - 07/15/2024 CT ANGIOGRAM CHEST ABDOMEN PELVIS W CONTRAST 07/15/2024 7:32 PM CLINICAL HISTORY: -Chest Pain -atypical chest pain. COMPARISON: None. PROCEDURE COMMENTS: Multidetector CT angiography of the region ofinterest. Isovue 370 IV contrast given as recorded in EPIC. Multiplanarreconstructions generated and reviewed, including 3D MIPS. Dose 1 : CT DLP Total : 739.28 mGycm DLP Spiral Max : 581.13 mGycm Maximum CTDI Vol : 8.37 mGy FINDINGS: Chest CT: Precontrast chest CT has no intramural hematoma along the thoracicaorta. Postcontrast CTA demonstrates normal thoracic aortic caliber withoutdissection. The main pulmonary arteries are patent. Normal heart size. No coronaryarterial calcifications or pericardial effusion. Calcified mediastinal and hilar nodes. 5 mm right posterior apical subpleural pulmonary nodule without definite calcification. Mild biapical scarring. Otherwise clear lungs. No pleural effusion or pneumothorax. Normal chest wall. Grossly intact rib cage. Abdomen and pelvis CT: Normal abdominal aortic caliber without dissection. Mild scatteredaortoiliac atherosclerotic calcifications. Patent visceral branches of the abdominalaorta. Grossly unremarkable liver, spleen, gallbladder, pancreas, adrenals, and kidneys. The visualized bowel within normal limits. No free fluid or pneumoperitoneum or adenopathy. The visualized bones are grossly intact. IMPRESSION: 1. No acute abnormality including aortic dissection. 2. 5 mm right apical pulmonary nodule. No follow-up needed if patientis low-risk. Non-contrast chest CT can be considered in 12 months if patientis high-risk (Per Fleischner Society guidelines). - Ambika Cormier APRN IMG CT ORDERABLES Final R esult * MM MAMMO DIGITAL BROWN SCREEN BILAT (06/02/2023 3:15 PM EST) Anatomical Region Laterality Modality Breast Bilateral Mammography 06/02/2023 3:20 PM EST Impressions 06/02/2023 3:20 PM EST Negative ([id number]-2) ~ RECOMMENDATION: Routine screening mammogram in 1 year. ~ DISCLAIMER * Any patient with a palpable abnormality, unexplained by breast imaging, should be managed on clinical basis by the attending physician. * Breast imaging has a false negative rate of 15%. * The patient was notified by mail of the results of this examination. *The patient's information was entered into a reminder system with a target due date for the next mammogram, in accordance with the [employer] and the Society of Breast Imaging recommendations. Narrative 06/02/2023 3:20 PM EST Procedure:MM MAMMO DIGITAL BROWN SCREEN BILAT ~ Reason for exam: screening, asymptomatic. Z12.31-Encounter for screening mammogram for malignant neoplasm of [id number] ~ MM MAMMO DIGITAL BROWN SCREEN BILAT Bilateral CC and MLO view(s) were taken. Technologist: RT Griselda The breast tissue is heterogeneously dense. This may lower the sensitivity of mammography. Prior study comparison: Compared with prior studies the most recent being 03/01/2022 No mammographic evidence of malignancy. ~ Procedure Note Juancho Hamilton MD - 06/02/2023 Procedure:MM MAMMO DIGITAL BROWN SCREEN BILAT ~ Reason for exam: screening, asymptomatic. Z12.31-Encounter for screening mammogram for malignant neoplasm of [id number] ~ MM MAMMO DIGITAL BROWN SCREEN BILAT Bilateral CC and MLO view(s) were taken. Technologist: RT Griselda The breast tissue is heterogeneously dense. This may lower thesensitivity of mammography. Prior study comparison: Compared with prior studies the most recentbeing 03/01/2022 No mammographic evidence of malignancy. ~ IMPRESSION: Negative ([id number]-5) ~ RECOMMENDATION: Routine screening mammogram in 1 year. ~ DISCLAIMER * Any patient with a palpable abnormality, unexplained by breast imaging, should be managed on clinical basis by the attending physician. * Breast imaging has a false negative rate of 15%. * The patient was notified by mail of the results of this examination. *The patient's information was entered into a reminder system with atarget due date for the next mammogram, in accordance with the [employer] and the Society of Breast Imaging recommendations. Cynthia Amado [facility] MAMMOGRAPHY ORDERABLES Fin al Result * GMED COLONOSCOPY (11/30/2021 8:00 AM EDT) 11/30/2021 8:00 AM EDT Impressions [facility] - 11/30/2021 8:36 AM EDT Plan: This section is an excerpt of the full report. us Gonzales Rivas MD GI PROCEDURE ORDERABLES Final Result Performing Organization Address City/State/[facility] Co de Phone Number [facility] [address] [place] [address] from Last 3 Months or Most Recently Relevant to Health Maintenance Insurance ANTHEM PPO ANTHEM PPO ANTHEM PPO ANTHEM PPO ANTHEM PPO ANTHEM PPO [address] [id number] [address] [place] [address] Advance Directives For more information, please contact: [phone] * Full Code (Latest Code Status on File) Date Activated Date Inactivated Comments 05/09/2024 3:57 AM 05/10/2024 9:06 PM * Full Code Date Activated Date Inactivated Comments 05/09/2024 3:11 AM 05/09/2024 3:57 AM * Full Code Date Activated Date Inactivated Comments 09/25/2023 4:41 PM 09/26/2023 3:33 PM Care Teams Director Of Security Relationship Specialty Start Date End Date Cynthia mAado APRN 12[address] [facility] [address] [place] [address] PCP - General Nurse Practitioner 11/20/18 Janny Kaufman MD [address] [place] [address] Consulting Physician Internal Medicine-Endocrinology, Diabetes & Metabolism 08/24/21
--- OUTSIDE RECORDS SUMMARY | 2025-03-09 12:22 | XMS_ITS | Patient Health Record ---
Author Organization [facility] Address [address] [facility] [address] [place] [address] Care Team Providers Care Boat Painter Name Role Phone Migration, Provider Unavailable Unavailable Allergies Allergen (clinical drug ingredient) Drug/Non Drug Allergy documented on EMR Reaction Allergy Type Onset Date Status Medications: NO KNOWN DRUG ALLERGIES (uncoded) Unspecified Allergy Active Reason For Referral No Information Social History Tobacco Use: Social History Observation [...] more times weekly) Travel outside of the [place]: Travel History: Uses seat belts 02/23/2021 - Plan Of Treatment No Information Medical (General) History Medical History History ICD Code *NO SIGNIFICANT GENETIC HISTORY Trichomonal Vulvovaginitis: 2021 Thickened endometrium 7 [place]: Sexually active - No 7 [place]: Self breast exam- yes 7 [place]: Dairy Product Use - Yes Surgical History Surgery Date(Month/Year) Tubal ligation
--- OUTSIDE RECORDS SUMMARY | 2025-03-09 12:22 | XMS_ITS | Encounter Summary ---
Author Organization [facility] Address [address] [place] [address] Care Team Providers Care Sail Repair Person Name Role Phone Cynthia Amado APRN Primary Care Provider [phone] Janny Kaufman MD Unavailable [phone] Reason for Visit * Reason Onset Date Comments Patient Question 03/04/2025 Encounter Details Date Type Department Care Team (Late st Contact Info) Description 03/04/2025 Telephone [facility] [address] [place] [address] Bismark Henry MD [address] [facility] [address] [place] [address] Patient Question Social History Tobacco Use Types Packs/Day Years Used Date Smoking Tobacco: Every Day Cigarettes 1 40.8 Started: 1986 Smokeless Tobacco: Never Comments:3/4 pack of cigaret abigail Alcohol Use Standard Drinks/Week Comments Not Currently 0 (1 standard drink = 0.6 oz pur e alcohol) [facility] Utilities Answer Date Recorded In the past 12 months has [employer] electric, gas, oil, or water company threatened to shut off services in your home? No 05/10/2024 Overall Financial Resource Strain (CARDIA) Answe r Date Recorded How hard is it for you to pa y for the very basics like food, housing, medical care, and heating? Not hard at all 05/10/2024 PHQ-2 Answer Date Recorded PHQ-2 Total Score 0 05/10/2024 [facility] of Occupat ional Health - Occupational Stress [...] money to get more. Never true 05/10/2024 [facility] H[facility]N [facility] IP Transportation Answer D ate Recorded In [...] on file documented as of this encounter Miscellaneous Notes * Telephone Encounter - Shawna Colon ATC - 03/04/2025 2:16 PM EDT After checking with Kendy, I called and told Anne-Marie it is too soon from her sx to do an MRI because it won't be able to show what is going on from the scar tissue. She does need to get an xray to ruleout a fx. Our [facility] and [facility] offices are open until 5 and [place] is open until 9. * Telephone Encounter - Naif Siddiqi, Clerical Staff - 03/04/2025 2:03 PM EDT She fell on her knee and she is now having some pain and she can feel something moving around inherknee. She would like to know if she can have an order to have an Mri. Please give her a call back to discuss documented in this encounter Plan of Treatment Upcoming Encounters Date Type Department Care Team (Late st Contact Info) Description 05/04/2025 4:00 PM EST Office Visit [facility] [address] [place] [address] Bismark Henry MD [address] [place] [address] documented as of this encounter Visit Diagnoses Not on filedocumented in this encounter Care Teams Sail Repair Person Relationship Specialty Start Date End Date Cnythia Amado APRN [address] [facility] [address] [place] [address] PCP - General Nurse Practitioner 11/20/18 Janny Kaufman MD [address] [place] [address] Consulting Physician Internal Medicine-Endocrinology, Diabetes & Metabolism 08/24/21 documented as of this encounter
--- OUTSIDE RECORDS SUMMARY | 2025-03-09 12:23 | XMS_ITS | Encounter Summary ---
Author Organization [facility] Address [address] [id number] Care Team Providers Care Design Quality Engineer Name Role Phone Cynthia Amado APRN Primary Care Provider [phone] Janny Kaufman MD Unavailable [phone] Reason for Visit * Reason Onset Date Comments Surgery 01/27/2025 Encounter Details Date Type Department Care Team (Late st Contact Info) Description 01/27/2025 Telephone [facility] [address] [address] Bismark Henry MD [address] [address] Surgery Social History Tobacco Use Types Packs/Day Years Used Date Smoking Tobacco: Every Day Cigarettes 1 40.8 Started: 1986 Smokeless Tobacco: Never Comments:3/4 pack of cigaret abigail Alcohol Use Standard Drinks/Week Comments Not Currently 0 (1 standard drink = 0.6 oz pur e alcohol) [facility] Utilities Answer Date Recorded In the past 12 months has [employer], gas, oil, or water company threatened to shut off services in your home? No 05/10/2024 Overall Financial Resource Strain (CARDIA) Answe r Date Recorded How hard is it for you to pa y for the very basics like food, housing, medical care, and heating? Not hard at all 05/10/2024 PHQ-2 Answer Date Recorded PHQ-2 Total Score 0 05/10/2024 [facility] - Occupational Stress Questionnaire Answer Date Recorded [...] money to get more. Never true 05/10/2024 [facility] IP Transportation Answer D ate Recorded [...] encounter Miscellaneous Notes * Telephone Encounter - Makayla Lau, Clerical Staff - 01/27/2025 11:42 AM EDT SPOKE TO PATIENT: SX ARRIVAL TIME 7:00 am 01/28/25 [place] [place] documented in this encounter Plan of Treatment Upcoming Encounters Date Type Department Care Team (Late st Contact Info) Description 05/04/2025 4:00 PM EST Office Visit [facility] [address] [place] [address] Bismark Henry MD [address] [place] [address] documented as of this encounter Visit Diagnoses Not on filedocumented in this encounter Care Teams Design Quality Engineer Relationship Specialty Start Date End Date Cynthia Amado APRN 12[address] [facility] [address] [place] [address] PCP - General Nurse Practitioner 11/20/18 Janny Kaufman MD [address] [place] [address] Consulting Physician Internal Medicine-Endocrinology, Diabetes & Metabolism 08/24/21 documented as of this encounter
--- OUTSIDE RECORDS SUMMARY | 2025-03-09 12:23 | XMS_ITS | Encounter Summary ---
Author Organization [facility] Address [address] [place] [address] Care Team Providers Care Sole Molder Name Role Phone Cynthia Amado APRN Primary Care Provider [phone] Janny Kaufman MD Unavailable [phone] Reason for Visit * Reason Onset Date Comments Orders 01/12/2025 Encounter Details Date Type Department Care Team (Late st Contact Info) Description 01/12/[address] [facility] [address] [place] [address] Bismark Henry MD [address] [facility] [address] [place] [address] Orders Social History Tobacco Use Types Packs/Day Years Used Date Smoking Tobacco: Every Day Cigarettes 1 40.8 Started: 1986 Smokeless Tobacco: Never Comments:3/4 pack of cigaret abigail Alcohol Use Standard Drinks/Week Comments Not Currently 0 (1 standard drink = 0.6 oz pur e alcohol) [facility] Utilities Answer Date Recorded In the past 12 months has [employer] electric, gas, oil, or water company threatened to shut off services in your home? No 05/10/2024 Overall Financial Resource Strain (CARDIA) Answe r Date Recorded How hard is it for you to pa y for the very basics like food, housing, medical care, and heating? Not hard at all 05/10/2024 PHQ-2 Answer Date Recorded PHQ-2 Total Score 0 05/10/2024 [facility] of Occupat ional [facility] - Occupational Stress Questionnaire Answer Date [...] money to get more. Never true 05/10/[address] [facility] IP Transportation Answer D ate Recorded [...] Telephone Encounter - Shawna Colon ATC - 01/12/2025 11:51 AM EDT I called Anne-Marie to let her know that Dr. Henry could put the order in but her ins will not pay for home PT unless she is restricted to home because of an illness or injury. She will find someone to bring her. * Telephone Encounter - Anel Latham, Clerical Staff - 01/12/2025 11:16 AM EDT Pt calling she would like to have dr Henry ref her for [facility] for them to come and do her PT at home due to she has no way around. She needs this done before her sx on 01/28/2025. Pls call ptto discuss. documented in this encounter Plan of Treatment Upcoming Encounters Date Type Department Care Team (Late st Contact Info) Description 05/04/2025 4:00 PM EST Office Visit [facility] [address] [place] [address] Bismark Henry MD [address] [place], [place] [id number] documented as of this encounter Visit Diagnoses Not on filedocumented in this encounter Care Teams Sole Molder Relationship Specialty Start Date End Date Cynthia Amado APRN 12[address] [facility] [address] [place] [address] PCP - General Nurse Practitioner 11/20/18 Janny Kaufman MD [address] [place] [address] Consulting Physician Internal Medicine-Endocrinology, Diabetes & Metabolism 08/24/21 documented as of this encounter
--- OUTSIDE RECORDS SUMMARY | 2025-03-09 12:23 | XMS_ITS | Encounter Summary ---
Author Organization [facility] Address [facility] [place] [address] Care Team Providers Care Batch Room Technician Name Role Phone Cynthia Amado APRN Primary Care Provider [phone] Janny Kaufman MD Unavailable [phone] Encounter Details Date Type Department Care Team (Late st Contact Info) Description 01/22/2022 [facility] [address] [id number] Excessive and frequent menstruation with regular cycle; Abnormal findings on diagnostic imaging of other specified body structures Social History Tobacco Use Types Packs/Day Years Used Date Smoking Tobacco: Every Day Cigarettes Smokeless Tobacco: Never Alcohol Use Standard Drinks/Week Comments Not Currently 0 (1 standard drink = 0.6 oz pur e alcohol) Comments No Sex and Gender Information Value Date Recorded Sex Assigned at Not on file Legal Sex Female 2:40 PM EDT Gender Identity Not on file Sexual Orientation Not on file documented as of this encounter Plan of Treatment Upcoming Encounters Date Type Department Care Team (Late st Contact Info) Description 05/04/2025 4:00 PM EST Office Visit [facility] [address] [address] Bismark Henry MD [address] [address] documented as of this encounter Procedures Procedure Name Priority Date/Time Associated Diagnosis Comments PATHOLOGY TISSUE REQUEST Routine 01/22/2022 2:39 PM EDT Excessive and frequent menstruation with regular cycle Abnormal findings on diagnostic imaging of other specified body structures documented in this encounter Results * PATHOLOGY TISSUE REQUEST (01/22/2022 2:39 PM EDT) CASE REPORT Surgical Pathology Case: [id number] Authorizing Provider: Royce Escobedo MD Collected: 01/22/2022 1439 Ordering Location: [facility] Received: 01/23/2022 0719 Pathologist: Farrah Guerrier MD Specimen: Endometrium 01/24/2022 12:01 PM EDT [facility] FINAL DIAGNOSIS Endometrial biopsy: - Mid secretory phase endometrium. - Negative for malignancy. 01/24/2022 12:01 PM EDT [facility] at 1201 EDT GROSS DESCRIPTION Received in formalin and labeled with the patient's name, medical record number, and endometrial biopsy is a 2.2 x 0.5 x 0.2 cm aggregate of pink-radford soft tissue. Entirely submitted in A1. ZN 01/23/2022 8:21 AM 01/24/2022 12:01 PM EDT [facility] MICROSCOPIC DESCRIPTION Microscopic examination is performed and the findings corroborate the diagnosis. 01/24/2022 12:01 PM EDT [facility] EMBEDDED IMAGES 01/24/2022 12:01 PM EDT [facility] Tissue SPECIMEN FROM ENDOMETRIUM / Unknown 01/22/2022 2:39 PM EDT 01/23/2022 7:19 AM EDT us Royce Escobedo MD PATHOLOGY ORDERABLES Final Res ult [facility] [address] [place] [address] [facility] [address] [place] [address] documented in this encounter Visit Diagnoses Diagnosis Excessive and frequent menstruation with regular cycle Excessive or frequent menstruation Abnormal findings on diagnostic imaging of other specified body structures documented in this encounter Additional Health Concerns Infection Onset Date Last Indicated Resolved Time R/O COVID-19 04/17/2022 04/17/2022 04/17/2022 2:11 PM EST COVID-19 04/17/2022 04/17/2022 05/07/2022 10:1 2 PM EST documented as of this encounter Care Teams Batch Room Technician Relationship Specialty Start Date End Date Cynthia Amado APRN [facility] [address] [place] [address] PCP - General Nurse Practitioner 11/20/18 Janny Kaufman MD [address] [place] [address] Consulting Physician Internal Medicine-Endocrinology, Diabetes & Metabolism 08/24/21 documented as of this encounter
--- OUTSIDE RECORDS SUMMARY | 2025-03-09 12:23 | XMS_ITS | Encounter Summary ---
Author Organization [facility] Address [address] [place] [address] Care Team Providers Care Edge Stainer Machine Name Role Phone Cynthia Amado APRN Primary Care Provider [phone] Janny Kaufman MD Unavailable [phone] Reason for Visit * Reason Comments Medication Refill Encounter Details Date Type Department Care Team (Late st Contact Info) Description 01/12/2025 Refill [facility] [address] [facility] [address] [place] [address] Frances Judd APRN [address] [place] [phone] Medication Refill Social History Tobacco Use Types Packs/Day Years Used Date Smoking Tobacco: Every Day Cigarettes 1 40.8 Started: 1986 Smokeless Tobacco: Never Comments:3/4 pack of cigaret abigail Alcohol Use Standard Drinks/Week Comments Not Currently 0 (1 standard drink = 0.6 oz pur e alcohol) [facility] Utilities Answer Date Recorded In the past 12 months has [employer] electric, gas, oil, or water company threatened to shut off services in your home? No 05/10/2024 Overall Financial Resource Strain (CARDIA) Answe r Date Recorded How hard is it for you to pa y for the very basics like food, housing, medical care, and heating? Not hard at all 05/10/2024 PHQ-2 Answer Date Recorded PHQ-2 Total Score 0 05/10/2024 [facility] of Occupat ional [facility] - Occupational Stress Questionnaire Answer Date [...] money to get more. Never true 05/10/2024 [facility] IP Transportation Answer D ate Recorded [...] on file documented as of this encounter Ordered Prescriptions Prescription Sig Dispense Quantity Refills Last Filled Start Date End Date meloxicam (MOBIC) 15 mg Oral TabletIndications:P ain in both knees, unspecified chronicity,Patellof emoral arthritis TAKE 1 TABLET BY MOUTH EVERY DAY 30 Tablet 01/12/2025 documented in this encounter Plan of Treatment Upcoming Encounters Date Type Department Care Team (Late st Contact Info) Description 05/04/2025 4:00 PM EST Office Visit [facility] [address] [address] Bismark Henry MD [address] [address] documented as of this encounter Visit Diagnoses Diagnosis Pain in both knees, unspecified chronicity Patellofemoral arthritis Unspecified arthropathy, lower leg documented in this encounter Discontinued Medications Medication Sig Discontinue Reason Start Date End Da te meloxicam (MOBIC) 15 mg Oral TabletIndications:Pain in both knees, unspecified chronicity,Patellofemoral arthritis TAKE 1 TABLET BY MOUTH EVERY DAY 12/15/2024 01/12/2025 documented as of this encounter Care Teams Edge Stainer Machine Relationship Specialty Start Date End Date Cynthia Amado APRN [address] [place] [address] PCP - General Nurse Practitioner 11/20/18 Janny Kaufman MD [address] [place] [address] Consulting Physician Internal Medicine-Endocrinology, Diabetes & Metabolism 08/24/21 documented as of this encounter
--- OUTSIDE RECORDS SUMMARY | 2025-03-09 12:23 | XMS_ITS | Encounter Summary ---
Author Organization [facility] [place] [address] Care Team Providers Care Supervisor Brooder Farm Name Role Phone Cynthia Amado APRN Primary Care Provider [phone] Janny Kaufman MD Unavailable [phone] Encounter Details Date Type Department Care Team (Latest Contact Info) Description 01/10/2025 Travel Social History Tobacco Use Types Packs/Day Years Used Date Smoking Tobacco: Every Day Cigarettes 1 40.8 Started: 1986 Smokeless Tobacco: Never Comments:3/4 pack of cigaret abigail Alcohol Use Standard Drinks/Week Comments Not Currently 0 (1 standard drink = 0.6 oz pur e alcohol) [facility] Utilities Answer Date Recorded In the past 12 months has [employer] electric, gas, oil, or water company threatened to shut off services in your home? No 05/10/2024 Overall Financial Resource Strain (CARDIA) Answe r Date Recorded How hard is it for you to pa y for the very basics like food, housing, medical care, and heating? Not hard at all 05/10/2024 PHQ-2 Answer Date Recorded PHQ-2 Total Score 0 05/10/2024 [facility] [place] of Occupat ional Health - Occupational Stress [...] money to get more. Never true 05/10/2024 [facility] H[facility]N [facility] IP Transportation Answer D ate Recorded [...] Office Visit [facility] [address] [address] Bismark Henry MD [address] [id number] documented as of this encounter Visit Diagnoses Not on filedocumented in this encounter Care Teams Supervisor Brooder Farm Relationship Specialty Start Date End Date Cynthia Amado APRN 1210 [facility] [address] [place] [address] PCP - General Nurse Practitioner 11/20/18 Janny Kaufman MD [address] [place] [address] Consulting Physician Internal Medicine-Endocrinology, Diabetes & Metabolism 08/24/21 documented as of this encounter
--- OUTSIDE RECORDS SUMMARY | 2025-03-09 12:23 | XMS_ITS | Encounter Summary ---
Author Organization [facility] Address [address] [id number] Care Team Providers Care Specialist Employee Labor Relations Name Role Phone Cynthia Amado APRN Primary Care Provider [phone] Janny Kaufman MD Unavailable [phone] Encounter Details Date Type Department Care Team (Late st Contact Info) Description 01/31/2025 Plan of Care Documentation [facility] [address] [facility] [address] [place], [place] [id number] Social History Tobacco Use Types Packs/Day Years Used Date Smoking Tobacco: Every Day Cigarettes 1 40.8 Started: 1984 Smokeless Tobacco: Never Comments:3/4 pack of cigaret abigail Alcohol Use Standard Drinks/Week Comments Not Currently 0 (1 standard drink = 0.6 oz pur e alcohol) [facility] Utilities Answer Date Recorded In the past 12 months has [employer], gas, oil, or water [employer] threatened to shut off services in your home? No 05/10/2024 Overall Financial Resource Strain (CARDIA) Answe r Date Recorded How hard is it for you to pa y for the very basics like food, housing, medical care, and heating? Not hard at all 05/10/2024 PHQ-2 Answer Date Recorded PHQ-2 Total Score 0 05/10/2024 [facility] [place] of Occupat ional Health - Occupational Stress [...] money to get more. Never true 05/10/2024 [facility] H[facility] IP Transportation Answer D ate Recorded In [...] as of this encounter Miscellaneous Notes * Therapist Plan of Care - Daily Boyce, PT - 01/31/2025 12:15 PM EDT Images from the original note were not included. Please sign to acknowledge agreement with this updated plan of care. Physical Therapy Evaluation 01/31/2025 Anne-Marie Li : [...] E, 1 TE, 1 V HEP ID: [id number] Treatment today included: Timed Units: Therapeutic exercise: [...] flow restriction, and dry needling. Signature: Daily Boyce PT Date: 01/31/2025 [place] License: [id number] documented in this encounter Plan of Treatment Upcoming Encounters Date Type Department Care Team (Late st Contact Info) Description 05/04/2025 4:00 PM EST Office Visit [facility] [address] [address] Bismark Henry MD [address] [address] documented as of this encounter Visit Diagnoses Not on filedocumented in this encounter Care Teams Specialist Employee Labor Relations Relationship Specialty Start Date End Date Cynthia Amado APRN 1210 [facility] [address] [place] [address] PCP - General Nurse Practitioner 11/20/18 Janny Kaufman MD [address] [place] [address] Consulting Physician Internal Medicine-Endocrinology, Diabetes & Metabolism 08/24/21 documented as of this encounter
== END 2025-03-07 23:59 ==
LOC: LAB.DROPOF 03-09 11:42
PROVIDERS: PCP Nurse Practitioner; Visit Provider Nurse Practitioner
DX: E89.0 Postprocedural hypothyroidism (principal); R30.0 Dysuria; I10 Essential (primary) hypertension; Z78.0 Asymptomatic menopausal state; Z11.59 Encounter for screening for other viral diseases
CPT/HCPCS: 80053; 84439; 84443; 87086; 87340